=== PATIENT | male | born 1935 | race Caucasian/White ===

== ENCOUNTER 2020-01-26 08:44 | Outpatient (CLI) | payer MEDICARE ==
--- NOTE | 2020-01-26 11:22 | CT ---
CT ABDOMEN AND PELVIS WITH IV CONTRAST 01/26/2020 CLINICAL INFORMATION: Metastatic prostate cancer. Evaluate for progression. Underwent chemotherapy 7 years ago. COMPARISON: None. Technique: Multiple contiguous axial CT images are obtained through the abdomen and pelvis with IV contrast. Cor onal reformatted images are provided. FINDINGS: Lower Chest: Linear scarring versus atelectasis at each lung base. No pulmonary nodule or mass is see n. Coronary artery calcifications are seen. There is evidence of a hiatal hernia with the fundus of the stomach above the level of the hemidiaphragms. Vessels: Vascular calcifications are seen in the abdominal aorta and involving the iliac arteries. Abdomen: Portal vein:Patent Gallbladder: Within normal limits for CT imaging. Liver: within normal limits. Spleen: Single calcified granuloma present. Pancreas: within normal limits. Adrenals: within normal limits. Kidneys: A single subcentimeter too small to characterize hypodense lesion is seen in each kidney. Th ere is no hydronephrosis or enhancing renal mass identified. Bowel: Evidence of colonic diverticulosis with multiple colonic diverticuli involving the sigmoid col on. Loops of small bowel are normal in caliber. Appendix: The appendix is visualized and normal in caliber. Peritoneum: No ascites or free air; no fluid collection. Mesentery and Retroperitoneum: No enlarged mesenteric or retroperitoneal lymph nodes. Abdominal Wall: within normal limits. Pelvis: Reproductive Organs: Calcifications are seen in the prostate gland. Prostate gland is heterogeneous i n appearance and borderline enlarged measuring 5 cm in transverse dimension. Bladder: Decompressed. Smith of the urinary bladder do appear thickened, but this is probably attribu table to incomplete distention. There is a small urinary bladder diverticulum involving the left lateral wall of the urinary bladder. Bones: Innumerable sclerotic osteoblastic metastatic lesions are seen throughout the visualized osseo us structures involving the bilateral ribs, visualized lower thoracic vertebral bodies as well as lumbar vertebral bodies and pelvis. Degenerative changes are seen in the spine. IMPRESSION: 1. Innumerable osteoblastic metastatic lesions throughout the visualized osseous structures. 2. Hiatal hernia 3. Colonic diverticulosis. 4. No enlarged lymph nodes are seen within the abdomen or pelvis. 5. Enlargement of the prostate gland which demonstrates heterogeneous appearance with associated calc ifications. 6. Urinary bladder is incompletely distended. Smith urinary bladder appear mildly thickened, but this is probably attributable to incomplete distention. There is a small urinary bladder diverticulum involving the left lateral wall of the urinary bladder.
--- NOTE | 2020-01-26 13:33 | NM ---
EXAM: NM Bone Scan STANDARD PROVIDED CLINICAL HISTORY: Prostate cancer. History of chemotherapy 7 years ago. Evaluate for progression. COMPARISON: No prior studies are available for comparison. Patient has prior outside CD with imaging, but the doe ges are encrypted and unable to be seen. FINDINGS: Multifocal areas of increased uptake of radiotracer are seen within the thoracic and lumbar spine as well as involving each iliac bone and more subtle areas of increased uptake of radiotracer within several ribs including more focal area of more intense uptake of radiotracer in a lower anterior righ t rib. These findings are in a pattern most suggestive of metastatic disease. Multiple sclerotic osseous metastatic lesions were seen within the visualized lower thoracic and lumbar spine and involv ing the pelvis on recent CT exam also obtained on this date. A few focal areas of increased uptake of radiotracer are seen within each shoulder, and while there are likely degenerative changes, a few of the foci of increased uptake are likely due to metastatic lesions as well. There is S-shaped sclerotic curvature of the thoracolumbar spine. Expected activity is seen within th e kidneys and urinary bladder with urine contamination overlying the lower pelvis. IMPRESSION: Osseous metastatic disease.
[2020-01-26] MEDS ORDERED: Iopamidol-370 76% 500 ML 1 ML ONE (14:52)
== END 2020-01-26 08:45 | disposition home or self-care (01) ==
LOC: CT 08:44
PROVIDERS: ATTEND Internal Medicine Hematology & Oncology
DX: C61 Malignant neoplasm of prostate (principal); C79.51 Secondary malignant neoplasm of bone; K44.9 Diaphragmatic hernia without obstruction or gangrene; K57.30 Diverticulosis of large intestine without perforation or abscess without bleeding; N32.3 Diverticulum of bladder
CPT/HCPCS: 74177; 78306; A9503; Q9967

== ENCOUNTER 2020-02-21 16:14 | Inpatient (IN) | payer MEDICARE ==
--- NOTE | 2020-02-21 17:40 | RAD ---
XR Chest 1 View Portable History: Chest pain Comparison: None. Findings: Extensive scarring in the lung bases. Diffuse osseous metastatic disease. Moderate hiatal h ernia. Tortuous vessels along the right paratracheal stripe. Small nodules right upper lobe. Impression: 1. Diffuse osseous metastatic disease. 2. No evidence for pneumonia. 3. Small nodules right upper lobe may reflect pulmonary metastasis versus granulomas. 3. Moderate hiatal hernia. 4. Scarring throughout the lung bases.
[2020-02-21 17:56] LABS: Hemoglobin 13.6 g/dL (14.0-18.0); Mean Corpuscular HGB CONC 33.4 g/dL (32.0-36.0); Platelet Count 142 thou/uL (130-400); RBC Distribution Width 11.4 % (11.5-14.5); Red Blood Cell (RBC) Count 3.77 mill/uL (4.70-6.10); White Blood Cell (WBC) Count 3.3 thou/uL (4.8-10.8)
[2020-02-21 18:17] LABS: ALT (SGPT) 12 U/L (8-55); AST (SGOT) 19 U/L (5-34); Alkaline Phosphatase 74 U/L (40-110); Anion Gap 16 mmol/L (10-20); BUN (Urea Nitrogen) 27 mg/dL (8.4-25.7); Bilirubin, Total 1.2 mg/dL (0.2-1.2); CK (CPK) 60 U/L (30-200); Calc. Creatinine Clearance 0 mL/min (70-130); Calcium 8.9 mg/dL (7.8-10.44); Carbon Dioxide 22 mmol/L (23-31); Chloride 107 mmol/L (98-107); Globulin 2.4 g/dL (2.4-3.5); Glucose 110 mg/dL (83-110); Potassium 4.5 mmol/L (3.5-5.1); Protein, Total 6.4 g/dL (5.8-8.1); Sodium 140 mmol/L (136-145)
--- NOTE | 2020-02-21 18:20 | CT ---
CT Brain WO Con History: Dizziness Comparison: None. 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 No acute hemorrhage or infarct. No midline shift or mass effect. Calvarium is intact. Paranasal sinuses and mastoids are clear. Impression: No acute intracranial abnormality.
[2020-02-21 18:21] LABS: Band 23 % (5-11); Lymphocytes 14 % (21-51); MDiff Complete? YES; Macrocytosis SLIGHT = 6-15 cells (100X) (0-5/hpf); Monocytes 2 % (0-10); Neutrophil 48 % (42-75); Platelet Morphology Comment Appears Adequate; Reactive Lymphocytes 13 % (0-10)
--- NOTE | 2020-02-21 22:40 | PDOC.HHP ---
Hospitalist HPI - History of Present Illness Balance issues History of Present Illness: PCP: Dr. Swartz The patient is an 84-year-old male with a past medical history significant for hypertension and metastatic prostate cancer followed by Dr. Swanson that presents to the emergency department for the above complaint. Patient reports that he became off balance this evening while in his kitchen. He reports while standing at the kitchen countertop, feeling off balance and "sliding into the countertop". He denies feeling like he was going to pass out or that the room was spinning. Also, at the dentist this morning, the patient reports difficulty reaching for a bag with his right hand, so he had to grab with his left hand. He said his hand would not do what his mind was telling it to do. Patient reports that he had a chemotherapy session this past on 02/16/2020. He denies any headache, recent fall or trauma, recent surgery, recent fever or illness. He has no history of DVT/PE. He denies vision changes, speech changes. Denies biting tongue or incontinence or bowel/bladder. Denies chest pain, heart palpitations, swelling to lower extremities. Denies any shortness of breath, wheezing or cough. Denies any abdominal pain, vomiting, hematochezia/melena. Denies any dysuria or hematuria. ED Course: VITAL SIGNS ThuFeb 21, 2020 16:15 MOE Bledsoe Elizabeth BP: 133/79, Pulse: 104, Resp: 17 (Non-Labored), Temp: 98.6 (Oral), Pain: 0, O2 sat: 99 on (Room Air), Time: 02/21/2020 16:15. VITAL SIGNS ThuFeb 21, 2020 17:25 MOE Martel Jennifer BP: 136/87, Pulse: 98, Resp: 16, Temp: 98.6 (Oral), Pain: 0, O2 sat: 98 on (Room Air), Time: 02/21/2020 17:25. VITAL SIGNS ThuFeb 21, 2020 18:35 MOE Martel Jennifer BP: 137/82, Pulse: 89, Resp: 19, Pain: 0, O2 sat: 97 on (Room Air), Time: 02/21/2020 18:35. VITAL SIGNS ThuFeb 21, 2020 19:30 MOE Guerin Madison BP: 138/87, Pulse: 90, Resp: 17, Pain: 0, O2 sat: 97 on (Room Air), Time: 02/21/2020 19:30. VITAL SIGNS ThuFeb 21, 2020 20:13 MOE Guerin Madison BP: 134/89, Pulse: 92, Resp: 20, Pain: 0, O2 sat: 98 on (Room Air), Time: 02/21/2020 20:13. Medications: 243 mg ASA 1 g calcium carbonate Pepcid 20 mg Hospitalist ROS - Review of Systems All other systems reviewed; all pertinent +/- noted in HPI/Subj - Medication Medications: lisinopril ThuFeb 21, 2020 16:23 Mariscal RN, Daniel tablet : Strength - 10 mg : ORAL Patient Dose: Unknown.UNKNOWN DOSE. amLODIPine ThuFeb 21, 2020 16:24 Mariscal RN, Daniel tablet : Strength - 10 mg : ORAL Patient Dose: Unknown.UNKNOWN DOSE. Allergies: NKDA Hospitalist History - Past Medical History Source: patient, RN notes reviewed Cardiac: reports: HTN Heme/Onc: reports: Cancer (Metastatic prostate cancer) - Past Surgical History Past Surgical History: reports: no pertinent history - Family History Family History: denies: cerebrovascular accident - Social History Smoking Status: Never smoker Alcohol: reports: Rare Drugs: reports: none Living Situation: With Family Activity level: uses cane/walker - Exam General Appearance: NAD, awake alert. negative: ill appearing Eye: PERRL, anicteric sclera ENT: normocephalic atraumatic Neck: supple, symmetric Heart: RRR, no gallops, no rubs, normal peripheral pulses, III/IV Respiratory: CTAB, no wheezes, no rales, no ronchi, normal chest expansion Gastrointestinal: soft, non-tender, non-distended, normal bowel sounds, no bruit, no guarding Extremities: no cyanosis, no edema Neurological: cranial nerve grossly intact, no focal deficits Neurological - other findings: GCS 15, NIH 0, normal modified hints exam Musculoskeletal: normal tone, normal strength Psychiatric: normal affect, A&O x 3 Hospitalist Results - Labs Result Diagrams: 02/22/20 02:18 02/22/20 02:18 Lab results: WBC 3.3 thou/uL (4.8-10.8) L 02/21/20 17:41 Hgb 13.6 g/dL (14.0-18.0) L 02/21/20 17:41 Hct 40.6 % (42.0-52.0) L 02/21/20 17:41 MCV 108.0 fL (78.0-98.0) H 02/21/20 17:41 Plt Count 142 thou/uL (130-400) 02/21/20 17:41 Band Neuts % (Manual) 23 % (5-11) H 02/21/20 17:41 Sodium 140 mmol/L (136-145) 02/21/20 17:41 Potassium 4.5 mmol/L (3.5-5.1) 02/21/20 17:41 Chloride 107 mmol/L (98-107) 02/21/20 17:41 Carbon Dioxide 22 mmol/L (23-31) L 02/21/20 17:41 BUN 27 mg/dL (8.4-25.7) H 02/21/20 17:41 Creatinine 0.83 mg/dL (0.7-1.3) 02/21/20 17:41 Glucose 110 mg/dL (83-110) 02/21/20 17:41 Lactic Acid 1.4 mmol/L (0.5-2.2) 02/21/20 17:41 Calcium 8.9 mg/dL (7.8-10.44) 02/21/20 17:41 Total Bilirubin 1.2 mg/dL (0.2-1.2) 02/21/20 17:41 AST 19 U/L (5-34) 02/21/20 17:41 ALT 12 U/L (8-55) 02/21/20 17:41 Alkaline Phosphatase 74 U/L (40-110) 02/21/20 17:41 Creatine Kinase 60 U/L (30-200) 02/21/20 17:41 Troponin I Less than 0.010 ng/mL (< 0.028) 02/21/20 17:41 Serum Total Protein 6.4 g/dL (5.8-8.1) 02/21/20 17:41 Albumin 4.0 g/dL (3.4-4.8) 02/21/20 17:41 - EKG Interpretation EKG: Sinus tachycardia, no ST elevations, left axis deviation. - Radiology Interpretation CT scan - head Status: report reviewed by me Additional Comment: Impression: No acute intracranial abnormality. Chest x-ray Status: report reviewed by me Additional Comment: Impression: 1. Diffuse osseous metastatic disease. 2. No evidence for pneumonia. 3. Small nodules right upper lobe may reflect pulmonary metastasis versus granulomas. 3. Moderate hiatal hernia. 4. Scarring throughout the lung bases. Hospitalist H&P A/P - Problem (1) TIA (transient ischemic attack) Code(s): G45.9 - TRANSIENT CEREBRAL ISCHEMIC ATTACK, UNSPECIFIED Status: Acute (2) Hypertension Code(s): I10 - ESSENTIAL (PRIMARY) HYPERTENSION Status: Chronic (3) Prostate cancer metastatic to bone Code(s): C61 - MALIGNANT NEOPLASM OF PROSTATE; C79.51 - SECONDARY MALIGNANT NEOPLASM OF BONE Status: Chronic - Plan Plan: 84/M with PMH HTN and prostate cancer presents for possible TIA. Admit to stroke unit, observation status. Expected length of stay less than 2 midnights. Presented tachycardic, NL BP, RR, SPO2, afebrile. EKG sinus tachycardia, no ST elevations. CXR osseous metastatic disease, no pneumonia. CT brain no acute process. Troponin 0.010, CK 60 BUN 27, creatinine 23 UA unremarkable LA 1.4, WBC 3.3 #TIA Suspected. Get MRI, CD US, echocardiogram. Check TSH, FLP, B12/folate, mag level. Continue aspirin, start statin. Consult neurology and PT/OT. Permissive hypertension. Neurochecks. Orthostatic vital signs. #Hypertension Presented hypertensive. Takes lisinopril and amlodipine at home. We will restart home medication when reconciled by nursing. #Prostate cancer metastatic to bone Last chemotherapy on 02/16/[address] Swanson. SCDs for DVT prophylaxis. Lovenox for DVT prophylaxis. Pepcid for GI prophylaxis. Full code. Discussed case with Dr. Yuliet Andrews.
[2020-02-21] MEDS ORDERED: Famotidine/PF 20 mg/2ml Vial ONE (23:10)
[2020-02-21] MEDS ORDERED: Aspirin Chewable 81 MG TAB ONE (23:10)
[2020-02-21 23:12] LABS: Bacteria/HPF None Seen HPF (None Seen); Bilirubin Negative (Negative); Blood, Urine Negative (Negative); Clarity Clear (Clear); Glucose, Urine (Dipstick) Normal (Negative); Ketone, Urine 10 mg/dL (Negative); Leukocyte Negative Leu/uL (Negative); Nitrite Negative (Negative); Protein, Urine (Dipstick) 30 mg/dL (Neg-Trace); RBC/HPF None Seen HPF (0-3); Squamous Epithelial 0-3 HPF (0-3); Urobilinogen Normal mg/dL (Less than 2); pH, Urine 5.5 (5.0-9.0)
[2020-02-21] MEDS ORDERED: Labetalol HCl 100 MG/20 ML VIAL SLOW IVP PRN (23:19)
[2020-02-21] MEDS ORDERED: hydrALAZINE 20 MG/ML VIAL SLOW IVP PRN (23:19)
[2020-02-21] MEDS ORDERED: Ondansetron PF 4 MG/2 ML Vial IVP PRN (23:24)
[2020-02-21] MEDS ORDERED: Ondansetron ODT 4 MG TAB PO PRN (23:24)
[2020-02-21] MEDS ORDERED: Calcium Carbonate 500 MG ChewTAB PO PRN (23:24)
[2020-02-21] MEDS ORDERED: Acetaminophen 325 MG TAB PO PRN (23:24)
[2020-02-21 23:56] LABS: Troponin I Less than 0.010 ng/mL (< 0.028)
[2020-02-22 00:16] LABS: Thyroid Stimulating Hormone 2.4543 uIU/mL (0.35-4.94)
[2020-02-22 01:30] VITALS: BMI 26.6
[2020-02-22 02:25] LABS: #Lymphocytes 0.9 thou/uL (1.20-3.40); #Monocytes 0.1 thou/uL (0.11-0.59); #Neutrophils 2.5 thou/uL (1.40-6.50); %Basophils 0.8 % (0.0-1.0); %Eosinophils 0.4 % (0.0-10.0); %Lymphocytes 25.7 % (21.0-51.0); %Monocytes 1.4 % (0.0-10.0); %Neutrophils 71.8 % (42.0-75.0); Hemoglobin 12.5 g/dL (14.0-18.0); Mean Corpuscular HGB CONC 34.1 g/dL (32.0-36.0); Mean Corpuscular Hemoglobin 36.6 pg (27.0-31.0); Mean Platelet Volume 8.4 fL (7.4-10.4); Platelet Count 121 thou/uL (130-400); RBC Distribution Width 11.4 % (11.5-14.5); Red Blood Cell (RBC) Count 3.42 mill/uL (4.70-6.10); White Blood Cell (WBC) Count 3.5 thou/uL (4.8-10.8)
[2020-02-22 02:48] LABS: Troponin I 0.021 ng/mL (< 0.028)
[2020-02-22 02:54] LABS: Anion Gap 15 mmol/L (10-20); BUN (Urea Nitrogen) 27 mg/dL (8.4-25.7); Calc. Creatinine Clearance 92 mL/min (70-130); Calcium 8.8 mg/dL (7.8-10.44); Carbon Dioxide 23 mmol/L (23-31); Chloride 105 mmol/L (98-107); Cholesterol 131 mg/dl (< 200 Desired); Glucose 126 mg/dL (83-110); Potassium 3.8 mmol/L (3.5-5.1); Sodium 139 mmol/L (136-145); Triglycerides 82 mg/dL (Less than 150)
[2020-02-22 02:55] LABS: Cardiac Risk 1.9 (Less than 4.5); HDL Cholesterol 68 mg/dL (>60 Neg Risk); LDL Cholesterol, Calculated 47 mg/dL
--- NOTE | 2020-02-22 08:20 | ULT ---
Carotid arterial Doppler ultrasound: 02/22/2020 COMPARISON: None HISTORY: Clinical concern for a posterior stroke TECHNIQUE: Multiplanar grayscale sonographic imaging of the arterial structures of the neck obtained with Doppler interrogation including color flow and spectral analysis FINDINGS: Antegrade blood flow and normal arterial waveforms are documented within the carotid and th e vertebral system bilaterally. Peak systolic velocity (centimeters per second) is 85 within the right CCA, 53 within the right ECA, 69 within the right ICA, 103 within the left CCA, 68 within the left ECA, and 51 within the left ICA. The ICA/CCA ratio is 0.8 on the right and 0.5 on the left. IMPRESSION: No hemodynamically significant stenosis on the basis of sonographic velocity criteria. Re view of recent head CT demonstrates a questionable intra-axial lesion posteriorly on the left for which brain MRI is advised. Results were discussed with at 8:15 AM 02/22/2020
[2020-02-22] MEDS: Enoxaparin Sodium 40 MG/0.4 ML SYRINGE SC SCH (09:00)
[2020-02-22] MEDS: Aspirin 325 mg Enteric Coated Tablet PO SCH (09:00)
[2020-02-22] MEDS ORDERED: FLU VACC QS2020-21(65YR UP)/PF 240 MCG/0.7 ML SYRINGE IM ONE (09:00)
[2020-02-22] MEDS: Famotidine 20 MG TAB PO SCH ×2 (09:00→20:34)
--- NOTE | 2020-02-22 09:02 | MRI ---
MRI of thebrain with and without contrast: 02/22/2020 COMPARISON:None available HISTORY:Possible posterior stroke, questionable brain lesion versus prior infarction on the left, his tory of prostate malignancy TECHNIQUE: Multiplanar multisequence MR imaging of thebrain with and without contrast Findings:The diffusion weighted imaging demonstrates multiple clustered foci of restricted diffusion within the posterior left parietal/temporal region consistent with acute infarction. Numerous punctate foci of restricted diffusion are seen in this region abutting the posterior body of the left lateral ventricle and extending into the adjacent deep and subcortical white matter involving an area measuring up to 2.7 cm in transverse dimension. The imaged paranasal sinuses and mastoid air cells demonstrate no acute findings. Regional bone marro w signal intensity appears grossly unremarkable. The axial gradient echo imaging demonstrates no evidence for acute hemorrhage. There is minimal curvi linear blooming artifact in an area of posterior left temporal occipital encephalomalacia suggesting remote infarction with associated minimal blood products. This area of prior insult corres ponds to the area of abnormality on recent CT exam. No underlying brain lesion is seen in this region. The postcontrast imaging demonstrates no abnormal enhancement within the brain parenchyma. IMPRESSION:Foci of restricted diffusion consistent with acute infarction on the left as detailed abov e. Inferior and posterior to this is an area of prior infarction corresponding to the abnormality on recent head CT. No evidence for acute hemorrhage. No enhancing intra-axial abnormality.
[2020-02-22 09:19] LABS: SARS-CoV-2 MS2 Positive; SARS-CoV-2 N Gene Negative; SARS-CoV-2 S Gene Negative; SARS-CoV-2 by NAA Not Detected (NotDetected); SARS-CoV-2 orf1ab Negative
[2020-02-22] MEDS ORDERED: Magnevist 469MG/ML 20 ML VIAL ONE (13:11)
--- NOTE | 2020-02-22 13:34 | PDOC.HOSPP ---
- Subjective Encounter Date: 02/22/20 Encounter Time: 10:00 Subjective: Patient was seen and examined in bed. He denies any ongoing weakness, slurred speech or tremors. Denies any chest pain or shortness of breath. - Objective Vital Signs & Weight: Vital Signs (12 hours) Temp Pulse Pulse Pulse Resp BP BP 02/22/20 11:41 97.7 F 83 16 02/22/20 11:04 80 81 144/72 H 131/74 02/22/20 09:09 72 74 148/66 H 149/73 H 02/22/20 08:57 97.7 F 70 16 02/22/20 04:00 97.9 F 81 20 BP Pulse Ox 02/22/20 11:41 115/74 97 02/22/20 11:04 02/22/20 09:09 02/22/20 08:57 148/66 H 97 02/22/20 04:00 137/62 98 Weight Weight 201 lb 15.095 oz I&O: 02/21/20 02/22/20 02/23/20 06:59 06:59 06:59 Intake Total 300 600 Balance 300 600 Result Diagrams: 02/22/20 02:18 02/22/20 02:18 Hospitalist ROS - Medication Medications: Active Medications Generic Name Dose Route Start Last Admin Trade Name Abhay PRN Reason Stop Dose Admin Aspirin 325 mg 02/22/20 09:00 02/22/20 09:00 Aspirin 325 Mg Enteric Coated Tablet PO 325 mg DAILY EDIS Administration Enoxaparin Sodium 40 mg 02/22/20 09:00 02/22/20 09:00 Enoxaparin Sodium 40 Mg/0.4 Ml Syringe SC 40 mg 899 EDIS Administration Famotidine 20 mg 02/22/20 09:00 02/22/20 09:00 Famotidine 20 Mg Tab PO 20 mg BID EDIS Administration - Exam General Appearance: awake alert Neck: supple, symmetric, no JVD, no thyromegaly Heart: RRR, no murmur, no gallops, no rubs Respiratory: CTAB, no wheezes, no rales, no ronchi Gastrointestinal: soft, non-tender, non-distended, normal bowel sounds Extremities: no cyanosis, no clubbing, no edema Neurological: cranial nerve grossly intact, no focal deficits Psychiatric: normal affect, normal behavior, A&O x 3 Hosp A/P - Plan This is an 84-year-old male patient with a history of metastatic prostate cancer currently undergoing chemotherapy who presented overnight on account of unsteadiness with swaying towards his right side. Also complains of difficulty grabbing onto things prior to arrival however most of the symptoms have resolved at the time of my evaluation. He is CT scan was concerning for a left temporal occipital lesion confirmed by MRI. Assessment as per neurology suggested this could be cardioembolic Cardioembolic stroke. He has no history of atrial fibrillation Transthoracic echocardiogram concerning for moderate to severe aortic stenosis however no Thrombus noted We will consult cardiology for EZEQUIEL for further evaluation. Continue aspirin and statin PT Fall precautions Permissive hypertension Metastatic prostate cancer Currently stable We will keep monitoring. Aortic stenosis Aortic sclerosis/stenosis Cardiology consulted [place] prophylaxisLovenox CODE STATUSfull code
--- NOTE | 2020-02-22 18:48 | CON ---
NEUROLOGY CONSULTATION DATE OF CONSULTATION: 02/22/2020 REASON FOR CONSULTATION: Stroke-like symptoms. HISTORY OF PRESENT ILLNESS: Mr. De Leon is an 84-year-old male with medical history significant for hypertension and metastatic lung cancer, followed by Dr. Swanson, presented to the emergency room with stroke-like symptoms and balance issues. Per patient, he felt off balance since evening while he was in his kitchen yesterday. He was unable to eat properly, and thought he has problem reaching things from his right hand . His chemotherapy session past on 02/16/2020, but denies any recent illness, recent fall, surgery, fever, recent exposure to COVID, chest pain, abdominal pain, focal numbness, focal paresthesias, nausea, vomiting, headache. In the emergency room, his blood pressure was 133/79, pulse 104, respiratory rate 17. He was given aspirin, calcium carbonate, and Pepcid. REVIEW OF SYSTEMS: All systems reviewed and were negative except the pertinent positives and negatives mentioned in the HPI. HOME MEDICATIONS: 1. Aspirin 81 mg daily. 2. Amlodipine 10 mg daily. 3. Lisinopril 10 mg daily. PAST MEDICAL HISTORY: Hypertension, metastatic lung cancer. PAST SURGICAL HISTORY: No pertinent past surgical history. FAMILY HISTORY: No family history with cerebrovascular accident. SOCIAL HISTORY: The patient lives with family. Denies smoking, alcohol, illegal drug use. ALLERGIES: NKDA Vital Signs & Weight: Vital Signs (12 hours) Temp Pulse Pulse Pulse Resp BP BP 02/22/20 11:41 97.7 F 83 16 02/22/20 11:04 80 81 144/72 H 131/74 02/22/20 09:09 72 74 148/66 H 149/73 H 02/22/20 08:57 97.7 F 70 16 02/22/20 04:00 97.9 F 81 20 BP Pulse Ox 02/22/20 11:41 115/74 97 02/22/20 11:04 02/22/20 09:09 02/22/20 08:57 148/66 H 97 02/22/20 04:00 137/62 98 Weight Weight 201 lb 15.095 oz I&O: 02/21/20 02/22/20 02/23/20 06:59 06:59 06:59 Intake Total 300 600 Balance 300 600 Active Medications Generic Name Dose Route Start Last Admin Trade Name Freq PRN Reason Stop Dose Admin Aspirin 325 mg 02/22/20 09:00 02/22/20 09:00 Aspirin 325 Mg Enteric Coated Tablet PO 325 mg DAILY EDIS Administration Enoxaparin Sodium 40 mg 02/22/20 09:00 02/22/20 09:00 Enoxaparin Sodium 40 Mg/0.4 Ml Syringe SC 40 mg 0900 EDIS Administration Famotidine 20 mg 02/22/20 09:00 02/22/20 09:00 Famotidine 20 Mg Tab PO 20 mg BID EDIS Administration PHYSICAL EXAMINATION: General Appearance: NAD, awake alert. negative: ill appearing Eye: PERRL, anicteric sclera ENT: normocephalic atraumatic Neck: supple, symmetric Heart: RRR, no gallops, no rubs, normal peripheral pulses, III/IV Respiratory: CTAB, no wheezes, no rales, no ronchi, normal chest expansion Gastrointestinal: soft, non-tender, non-distended, normal bowel sounds, no bruit, no guarding Extremities: no cyanosis, no edema Neurological:Mental status; the patient is alert and oriented to person, place, and time. Recent and remote memory, intact. Speech is clear. Cranial nerves 2 through 12 intact. Motor; muscle tone and bulk are normal. Moving all 4 extremities equally and symmetrically. Sensory intact. Cerebellar, dysmetria on finger- nose testing on the right. Gait deferred due to the patient's safety reason. DIAGNOSTIC STUDIES: Data reviewed. I reviewed the labs which are significant for hemoglobin of 12.5, hematocrit of 36.8, and platelets 121. WBC 3.3 thou/uL (4.8-10.8) L 02/21/20 17:41 Hgb 13.6 g/dL (14.0-18.0) L 02/21/20 17:41 Hct 40.6 % (42.0-52.0) L 02/21/20 17:41 MCV 108.0 fL (78.0-98.0) H 02/21/20 17:41 Plt Count 142 thou/uL (130-400) 02/21/20 17:41 Band Neuts % (Manual) 23 % (5-11) H 02/21/20 17:41 Sodium 140 mmol/L (136-145) 02/21/20 17:41 Potassium 4.5 mmol/L (3.5-5.1) 02/21/20 17:41 Chloride 107 mmol/L (98-107) 02/21/20 17:41 Carbon Dioxide 22 mmol/L (23-31) L 02/21/20 17:41 BUN 27 mg/dL (8.4-25.7) H 02/21/20 17:41 Creatinine 0.83 mg/dL (0.7-1.3) 02/21/20 17:41 Glucose 110 mg/dL (83-110) 02/21/20 17:41 Lactic Acid 1.4 mmol/L (0.5-2.2) 02/21/20 17:41 Calcium 8.9 mg/dL (7.8-10.44) 02/21/20 17:41 Total Bilirubin 1.2 mg/dL (0.2-1.2) 02/21/20 17:41 AST 19 U/L (5-34) 02/21/20 17:41 ALT 12 U/L (8-55) 02/21/20 17:41 Alkaline Phosphatase 74 U/L (40-110) 02/21/20 17:41 Creatine Kinase 60 U/L (30-200) 02/21/20 17:41 Troponin I Less than 0.010 ng/mL (< 0.028) 02/21/20 17:41 Serum Total Protein 6.4 g/dL (5.8-8.1) 02/21/20 17:41 Albumin 4.0 g/dL (3.4-4.8) 02/21/20 17:41 - EKG Interpretation EKG: Sinus tachycardia, no ST elevations, left axis deviation. - Radiology Interpretation CT scan - head Status: report reviewed by me Additional Comment: Impression: No acute intracranial abnormality. Chest x-ray Status: report reviewed by me Additional Comment: Impression: 1. Diffuse osseous metastatic disease. 2. No evidence for pneumonia. 3. Small nodules right upper lobe may reflect pulmonary metastasis versus granulomas. 3. Moderate hiatal hernia. 4. Scarring throughout the lung bases. ASSESSMENT AND PLAN: (1) TIA (transient ischemic attack) Code(s): G45.9 - TRANSIENT CEREBRAL ISCHEMIC ATTACK, UNSPECIFIED Status: Acute (2) Hypertension Code(s): I10 - ESSENTIAL (PRIMARY) HYPERTENSION Status: Chronic (3) Prostate cancer metastatic to bone Code(s): C61 - MALIGNANT NEOPLASM OF PROSTATE; C79.51 - SECONDARY MALIGNANT NEOPLASM OF BONE Status: Chronic Mr. Alley De Leon is an 84-year-old male, who was consulted for stroke-like symptoms including right hand dysmetria and balance issues, most likely transient ischemic attack. Consider MRI of the brain to rule out acute intracranial process. 2D echo to evaluate for left ventricular ejection fraction. Telemetry to rule out arrhythmias. Carotid Dopplers to rule out hemodynamically-significant stenosis. PT/OT/speech. The patient was on aspirin 81 mg daily so increase it to full dose and continue home medications. Continue statin for secondary stroke prevention. Monitor BP and BG. Continue medical management per primary team. Neuro checks every 4 hours. DVT prophylaxis. We will continue to follow. Thank you for the consult. Job ID: [id number]
[2020-02-22] MEDS ORDERED: Atorvastatin Calcium 40 MG TAB PO SCH (21:00)
[2020-02-23 05:17] LABS: Hemoglobin A1c 5.1 % (4.0-6.0)
[2020-02-23] MEDS ORDERED: Furosemide 20 MG TAB PO PRN (08:24)
[2020-02-23] MEDS ORDERED: Amlodipine 5 MG TAB PO SCH (09:00)
[2020-02-23] MEDS ORDERED: Non-Formulary Item 1 EACH (Enzalutamide [Xtandi] 40 MG Capsule) PO SCH (09:00)
[2020-02-23] MEDS ORDERED: Ondansetron ODT 8 MG TAB PO SCH (09:00)
[2020-02-23] MEDS ORDERED: Non-Formulary Item 1 EACH (Potassium Chloride [Potassium Chloride] 10 MEQ Capsule.Er) PO SCH (09:00)
[2020-02-23] MEDS ORDERED: Potassium Chloride 10 MEQ TAB PO SCH (09:00)
[2020-02-23] MEDS ORDERED: Lisinopril 20 MG TAB PO SCH (09:00)
[2020-02-23] MEDS ORDERED: Enzalutamide [Xtandi] 40 MG PO SCH (09:00)
[2020-02-23] MEDS ORDERED: PROCHLORPERAZINE MALEATE 10 MG PO SCH (09:00)
[2020-02-23] MEDS ORDERED: Prochlorperazine Maleate 5 MG TAB PO SCH (09:00)
[2020-02-23] MEDS: Enoxaparin Sodium 40 MG/0.4 ML SYRINGE SC SCH (09:18)
[2020-02-23] MEDS: Famotidine 20 MG TAB PO SCH (09:18)
[2020-02-23] MEDS: Aspirin 325 mg Enteric Coated Tablet PO SCH (09:18)
[2020-02-23 11:16] VITALS: TEMP 97.3
[2020-02-23 13:36] VITALS: BP 148/86
--- NOTE | 2020-02-23 14:14 | PDOC.NEUPN ---
- Subjective Encounter Date: 02/23/20 Subjective: Mr. De Leon denies any new complaints in the last 24 hours. - Objective Vital Signs & Weight: Vital Signs (12 hours) Temp Pulse Pulse Pulse Resp BP BP 02/23/20 11:14 97.3 F L 92 20 02/23/20 09:18 72 02/23/20 09:09 76 79 148/86 H 141/81 H 02/23/20 08:44 76 72 148/86 H 143/76 H 02/23/20 07:32 97.9 F 72 16 02/23/20 03:34 98.5 F 73 16 BP BP Pulse Ox 02/23/20 11:14 116/67 97 02/23/20 09:18 02/23/20 09:09 02/23/20 08:44 02/23/20 07:32 143/75 H 98 02/23/20 03:34 140/76 97 Weight Weight 201 lb 15.095 oz I&O: 02/22/20 02/23/20 02/24/20 06:59 06:59 06:59 Intake Total 300 900 600 Balance 300 900 600 Result Diagrams: 02/22/20 02:18 02/22/20 02:18 Radiology Reviewed by me: Yes EKG Reviewed by me: Yes ROS - Review of Systems Constitutional: denies: fever, chills, sweats, weakness, malaise, other Eyes: denies: pain, vision change, conjunctivae inflammation, eyelid inflammation, redness, other ENT: denies: ear pain, ear discharge, nose pain, nose discharge, nose congestion, mouth pain, mouth swelling, throat pain, throat swelling, other Gastrointestinal: denies: nausea, vomiting, abdominal pain, diarrhea, constipation, melena, hematochezia, other Genitourinary: denies: dysuria, frequency, incontinence, hematuria, retention, other Musculoskeletal: denies: neck pain, shoulder pain, arm pain, back pain, hand pain, leg pain, foot pain, other Skin: denies: rash, lesions, fabi, bruising, other Neurological: denies: weakness, numbness, incoordination, change in speech, confusion, seizures, other - Medication Medications: Active Medications Generic Name Dose Route Start Last Admin Trade Name Freq PRN Reason Stop Dose Admin Amlodipine Besylate 5 mg 02/23/20 09:00 12/10/20 09:18 Amlodipine 5 Mg Tab PO 5 mg DAILY EDIS Administration Aspirin 325 mg 02/22/20 09:00 02/23/20 09:18 Aspirin 325 Mg Enteric Coated Tablet PO 325 mg DAILY EDIS Administration Atorvastatin Calcium 40 mg 02/22/20 21:00 02/22/20 20:35 Atorvastatin Calcium 40 Mg Tab PO 40 mg HS EDIS Administration Enoxaparin Sodium 40 mg 02/22/20 09:00 02/23/20 09:18 Enoxaparin Sodium 40 Mg/0.4 Ml Syringe SC 40 mg 0900 EDIS Administration Famotidine 20 mg 02/22/20 09:00 02/23/20 09:18 Famotidine 20 Mg Tab PO 20 mg BID EDIS Administration Lisinopril 20 mg 02/23/20 09:00 02/23/20 09:18 Lisinopril 20 Mg Tab PO 20 mg DAILY EDIS Administration Ondansetron HCl 8 mg 02/23/20 09:00 02/23/20 09:18 Ondansetron Odt 8 Mg Tab PO Not Given DAILY [facility] Potassium Chloride 10 meq 02/23/20 09:00 02/23/20 09:18 Potassium Chloride 10 Meq Tab PO 10 meq DAILY [facility] Administration Prochlorperazine Maleate 10 mg 02/23/20 09:00 02/23/20 09:17 Prochlorperazine Maleate 5 Mg Tab PO Not Given DAILY [facility] - Exam General Appearance: awake alert Eye: PERRL ENT: normocephalic atraumatic Neck: supple Respiratory: CTAB Cardiovascular: RRR Gastrointestinal: soft Extremities: no cyanosis Skin: normal turgor Neurological: no new deficit Musculoskeletal: normal tone, no muscle wasting PSYCH: normal affect, normal behavior, A&O x 3 Results - Labs Result Diagrams: 02/22/20 02:18 02/22/20 02:18 Lab results: WBC 3.5 thou/uL (4.8-10.8) L 02/22/20 02:18 Hgb 12.5 g/dL (14.0-18.0) L 02/22/20 02:18 Hct 36.8 % (42.0-52.0) L 02/22/20 02:18 MCV 107.0 fL (78.0-98.0) H 02/22/20 02:18 Plt Count 121 thou/uL (130-400) L 02/22/20 02:18 Neutrophils % 71.8 % (42.0-75.0) 02/22/20 02:18 Band Neuts % (Manual) 23 % (5-11) H 02/21/20 17:41 Sodium 139 mmol/L (136-145) 02/22/20 02:18 Potassium 3.8 mmol/L (3.5-5.1) 02/22/20 02:18 Chloride 105 mmol/L (98-107) 02/22/20 02:18 Carbon Dioxide 23 mmol/L (23-31) 02/22/20 02:18 BUN 27 mg/dL (8.4-25.7) H 02/22/20 02:18 Creatinine 0.76 mg/dL (0.7-1.3) 02/22/20 02:18 Glucose 126 mg/dL (83-110) H 02/22/20 02:18 Lactic Acid 1.4 mmol/L (0.5-2.2) 02/21/20 17:41 Calcium 8.8 mg/dL (7.8-10.44) 02/22/20 02:18 Total Bilirubin 1.2 mg/dL (0.2-1.2) 02/21/20 17:41 AST 19 U/L (5-34) 02/21/20 17:41 ALT 12 U/L (8-55) 02/21/20 17:41 Alkaline Phosphatase 74 U/L (40-110) 02/21/20 17:41 Creatine Kinase 60 U/L (30-200) 02/21/20 17:41 Troponin I 0.021 ng/mL (< 0.028) 02/22/20 02:18 Serum Total Protein 6.4 g/dL (5.8-8.1) 02/21/20 17:41 Albumin 4.0 g/dL (3.4-4.8) 02/21/20 17:41 Urine Ketones 10 mg/dL (Negative) A 02/21/20 22:53 Urine Blood Negative (Negative) 02/21/20 22:53 Urine Nitrite Negative (Negative) 02/21/20 22:53 Ur Leukocyte Esterase Negative Brandan/uL (Negative) 12/08/20 22:53 Urine RBC None Seen HPF (0-3) 02/21/20 22:53 Urine WBC 4-6 HPF (0-3) A 02/21/20 22:53 Ur Squamous Epith Cells 0-3 HPF (0-3) 02/21/20 22:53 Urine Bacteria None Seen HPF (None Seen) 02/21/20 22:53 - EKG Interpretation EKG: Normal sinus rhythm - Radiology Interpretation MRI - head Additional Comment: MRI of the brain was negative for acute intracranial pathology PN A/P (1) Acute CVA (cerebrovascular accident) Code(s): I63.9 - CEREBRAL INFARCTION, UNSPECIFIED Status: Acute (2) Hypertension Code(s): I10 - ESSENTIAL (PRIMARY) HYPERTENSION Status: Chronic (3) Prostate cancer metastatic to bone Code(s): C61 - MALIGNANT NEOPLASM OF PROSTATE; C79.51 - SECONDARY MALIGNANT NEOPLASM OF BONE Status: Chronic - Plan Daily Plan: PT/OT, DVT proph w/SCDs Mr. Montes is a 84-year-old male with history significant for hypertension and prostate carcinoma with metastasis presented with strokelike symptoms . MRI of the brain was consistent with acute infarction MRI of the brain reviewed which showed multiple tiny lacunar infarcts on the left raising suspicion of cardioembolic phenomena. Carotid Dopplers did not reveal hemodynamically significant stenosis. Left ventricular ejection fraction on 2D echocardiogram was is 55 to 60% and no thrombus or PFO. Cardiology on board. Did not recommend EZEQUIEL but recommended Linq monitor to rule out arrhythmias. Patient was on aspirin 81 mg daily still increased to full dose aspirin. Continue high intensity statin for secondary stroke prevention. Neurochecks every 4 hours. Continue telemetry Continue home medications. Monitor blood pressure and blood glucose. Continue medical management per primary team. PT/OT/speech. DVT prophylaxis. Plan discussed in detail with the patient and also the nursing staff.
--- NOTE | 2020-02-24 07:30 | CON ---
DATE OF CONSULTATION: 02/23/2020 REASON FOR CONSULTATION: Stroke, aortic stenosis. HISTORY OF PRESENT ILLNESS: Mr. De Leon is a very pleasant 84-year-old gentleman. He has a history of metastatic prostate cancer. He has been treated with Xtandi and hormonal therapy, but now is undergoing chemotherapy. The patient had an episode of problem with his balance and thought to have probably a posterior circulation stroke potentially cardioembolic, but it is unclear. No cardiac history. The patient otherwise has been active. Considering his other medical problems, he has been doing relatively well. MEDICATIONS: As outlined above. No cardiac medicines. Other than amlodipine, furosemide and lisinopril, and now aspirin. REVIEW OF SYSTEMS: CONSTITUTIONAL: No significant weight gain or loss. He is tolerating chemotherapy well. VISION: No changes. HEARING: No changes. PULMONARY: No cough or wheezing. GASTROINTESTINAL: No nausea, vomiting, or diarrhea. SKIN: No rashes. NEUROLOGIC: No unilateral weakness or numbness, just has balance problems. PHYSICAL EXAMINATION: GENERAL: This is a delightful 84-year-old gentleman, in no distress. VITAL SIGNS: Blood pressure 143/75, pulse 72. LUNGS: Clear. CARDIAC: Normal S1, normal S2. Very soft systolic murmur in right upper sternal border. No diastolic murmur. No S3. ABDOMEN: Soft, nontender. EXTREMITIES: No clubbing or cyanosis. There is no edema. Good peripheral pulses. LABORATORY DATA: EKG, sinus rhythm, there is no arrhythmias. Otherwise EKG is unremarkable. Echocardiogram showed the ejection fraction 55% to 60%, [id number] aortic stenosis, peak gradient 41 mmHg, mean gradient 24 mmHg. ASSESSMENT: 1. Small stroke in the posterior circulation. 2. Hccwclho-sm-oqnjzf aortic stenosis. 3. Prostate cancer, metastatic. PLAN: 1. We will place an outpatient monitor to screen for any atrial arrhythmias. He has had none here. 2. We will see in the office in about 6 weeks. Consideration for repeating an echocardiogram in about a year. No interventions indicated for the aortic valve at this point. Job ID: [id number]
--- NOTE | 2020-02-24 09:17 | PDOC.DS.DS ---
Provider - Provider Date of Admission: 02/22/20 09:24 Date of Discharge: 02/23/20 Admitting Provider: Yuliet Perla MD Consultations: Cardiology, Neurology Primary Care Physician: Dwain Swartz Course - Hospital Course Hospital Course: This is an 84-year-old male patient with a history of metastatic prostate cancer currently undergoing chemotherapy who presented overnight with unsteadiness and swaying towards his right side. Also complains of difficulty grabbing onto things prior to arrival however most of the symptoms have resolved at the time of initial assessment. Cardioembolic stroke. Initial CT scan concerning for left temporal occipital lesion. MRI confirmed this. He has no history of atrial fibrillation Patient was admitted and continued on aspirin and statin therapy. Permissive hypertension. Patient was evaluated by the various therapies however his neurologic status normalized. The nature of the scattered findings on his MRI was concerning for possible embolic source. Carotid Doppler revealed no hemodynamically significant stenosis. Echo did not reveal an embolic source. Neurology was consulted. Agreed with overall plan. Once the work-up was completed and the patient's symptoms had resolved he was f elt to be stable for discharge to home. -Aortic stenosis: Transthoracic echocardiogram concerning for moderate to severe aortic stenosis however no Thrombus noted Cardiology was consulted. Outpatient heart monitor placed. Metastatic prostate cancer Currently stable We will keep monitoring. Maintained antihormonal therapy VT prophylaxisLovenox CODE STATUSfull code Pertinent Studies: Chest x-ray revealed diffuse osseous metastatic disease, no evidence of pne umonia, small nodules of the right upper lobe possibly reflective of pulmonary metastases versus granulomas, moderate hiatal hernia, scarring throughout the lung bases. CT brain shows no acute intracranial abnormality. Carotid Doppler shows no hemodynamically significant stenosis on the basis of s onographic velocity criteria. MRI of the brain shows a focus of restricted diffusion consistent with acute infarction on the left parietal/temporal region. Inferior and posterior to this is an area of prior infarction. Echocardiogram shows ejection fraction of 55 to 60% with aortic valve sclerosis and reduced mobility of leaflets. Appears to have moderate to severe aortic valve stenosis with peak gradient of 41 mmHg and mean gradient of 24 mmHg. Resuscitation Status: 02/21/20 23:24 Resuscitation Status Routine Co-Sign Provider: Resuscitation Status: FULL: Full Resuscitation Discussed with: patient - Labs Lab Results: 02/22/20 02:18 02/22/20 02:18 Microbiology - Entire Visit 02/21/20 22:53 Urine voided Urine Culture - Final NO GROWTH AT 36 HOURS - Physical Exam Vitals: Weight Weight 201 lb 15.095 oz Physical Exam: The patient was seen and examined on the day of discharge. Heart was regular, lungs were clear. Neurologically the patient had no signific ant deficits. Problem - Problem (1) Aortic stenosis Code(s): I35.0 - NONRHEUMATIC AORTIC (VALVE) STENOSIS Status: Acute (2) Acute CVA (cerebrovascular accident) Code(s): I63.9 - CEREBRAL INFARCTION, UNSPECIFIED Status: Acute (3) Hypertension Code(s): I10 - ESSENTIAL (PRIMARY) HYPERTENSION Status: Chronic (4) Prostate cancer metastatic to bone Code(s): C61 - MALIGNANT NEOPLASM OF PROSTATE; C79.51 - SECONDARY MALIGNANT NEOPLASM OF BONE Status: Chronic - Time spent with Patient (mins): 35 Plan - Discharge Medications Prescriptions: Aspirin [Adult Low Dose Aspirin EC] 81 mg PO DAILY #30 tablet. Atorvastatin Calcium [Lipitor] 40 mg PO HS #30 tab Home Medications: Medication Instructions Recorded Confirmed Type Amlodipine [Norvasc] 5 mg PO DAILY 02/22/20 02/22/20 History Enzalutamide [Xtandi] 120 mg PO DAILY 02/22/20 02/22/20 History Furosemide [Lasix] 20 mg PO DAILY PRN 02/22/20 02/22/20 History Lisinopril [Zestril] 20 mg PO DAILY 02/22/20 02/22/20 History Ondansetron [Zofran ODT] 8 mg PO DAILY 02/22/20 02/22/20 History Potassium Chloride 10 meq PO DAILY 02/22/20 02/22/20 History Prochlorperazine Maleate 10 mg PO DAILY 02/22/20 02/22/20 History Aspirin [Adult Low Dose Aspirin EC] 81 mg PO DAILY #30 tablet. 02/23/20 Rx Atorvastatin Calcium [Lipitor] 40 mg PO HS #30 tab 02/23/20 Rx Allergies: No Known Drug Allergies Allergy (Verified 02/22/20 03:50) pt denies allergies - Discharge Instructions Discharge Instructions:: Dr. Mclaughlin's office will arrange for followup in 5 weeks. Activity:: Activity as Tolerated Nourishment:: Heart Healthy Diet Therapies:: Occupational Therapy, Physical Therapy - Follow up Plan Referrals: Yarelis Swartz-Trevon Gama MD [Primary Care Provider] - Tony Mclauhglin MD [Active] - Disposition: HOME Quality - Care Measures CORE MEASURES:: Stroke/TIA - Stroke/TIA Did you prescribe antithrombotic therapy?: Yes Did you prescribe anticoagulant for A Fib/Flutter?: No Specify reason for no DC anticoagulant: Treatment not indicated Did you prescribe a statin medication?: Yes
== END 2020-02-23 14:29 | disposition home or self-care (01) | DRG 65 ==
LOC: ERS 16:14 → 2SE 23:04 → OBSVTOIN 02-22 09:24
PROVIDERS: ADMIT Internal Medicine; ATTEND Internal Medicine
DX: I63.9 Cerebral infarction, unspecified (principal); C79.51 Secondary malignant neoplasm of bone; Z20.828 Contact with and (suspected) exposure to other viral communicable diseases; I10 Essential (primary) hypertension; C61 Malignant neoplasm of prostate; R00.0 Tachycardia, unspecified; I35.0 Nonrheumatic aortic (valve) stenosis; Z79.82 Long term (current) use of aspirin; Z92.21 Personal history of antineoplastic chemotherapy
CPT/HCPCS: 36415; 70450; 70553; 71045; 80048; 80053; 80061; 81003; 81015; 82550; 82607; 82746; 83036; 83605; 83735; 84443; 84484; 85025; 87086; 87635; 93005; 93306; 93880; 96372; 96374; A9579; G0378; J1650; S0028; U0003

== ENCOUNTER 2020-03-02 06:46 | Inpatient (IN) | payer MEDICARE ==
[2020-03-02] MEDS ORDERED: Pantoprazole 40 MG VIAL ONE (06:58)
--- NOTE | 2020-03-02 07:50 | CT ---
EXAM: CT brain without contrast HISTORY: Passed out while on the . Patient fell forward and hit face and head on the shower COMPARISON: 02/21/2020 TECHNIQUE: Multiple contiguous axial images were obtained and a CT of the brain without contrast. FINDINGS: There are scattered hypodensities in the subcortical and periventricular white matter consi stent with small vessel ischemic disease. More focal encephalomalacia is seen in the left parietal lobe. There is no evidence of hydrocephalus, intracranial hemorrhage, or extra-axial fluid collection . The calvarium and overlying soft tissues are unremarkable. The visualized paranasal sinuses and masto id air cells are well aerated. IMPRESSION: No evidence of acute intracranial abnormality
[2020-03-02 07:52] LABS: INR-International Normal Ratio 1.3; Prothrombin Time 16.9 sec (12.0-14.7)
--- NOTE | 2020-03-02 07:52 | CT ---
EXAM: CT of the cervical spine without contrast HISTORY: Neck pain after fall while passing out on the toilet. History of prostate cancer COMPARISON: Bone scan 01/26/2020 TECHNIQUE: Multiple contiguous axial images were obtained in a CT of the cervical spine without contr ast. Sagittal and coronal reformats were performed. FINDINGS: There are numerous sclerotic lesions in the bones consistent with osseous metastases. The v ertebral bodies demonstrate normal height and alignment without fracture or subluxation. Mild degenerative changes seen throughout cervical spine. No prevertebral soft tissue swelling is seen. The posterior facets are well aligned. Normal alignment of the skull base with the cervical spine is seen. The lung apices and cervical soft tissues are unremarkable. IMPRESSION: 1. No evidence of acute osseous abnormality of the cervical spine. 2. Diffuse osseous metastatic disease from prostate cancer
--- NOTE | 2020-03-02 07:54 | CT ---
EXAM: CT face without contrast HISTORY: Facial trauma after passing out on the toilet COMPARISON: None TECHNIQUE: Multiple contiguous axial images were obtained and a CT of the face without contrast. Sagi ttal and coronal reformats were performed. FINDINGS: No facial fractures are identified. There is a laceration of the upper lip. Mild facial so ft tissue swelling is seen. The globes and retrobulbar soft tissues are unremarkable. The visualized paranasal sinuses are well aerated without evidence of opacification. The mastoid air cells are well aerated. Visualized intracranial structures are unremarkable. IMPRESSION: No evidence of facial fracture
[2020-03-02] MEDS ORDERED: Rocuronium Bromide 10 MG/ML (10ML VIAL) ONE (07:55)
[2020-03-02] MEDS ORDERED: Norepinephrine 4 MG/4 ML VIAL ONE (07:57)
[2020-03-02 08:01] LABS: D-Dimer Test 8.79 *mcg/mL (0.27-0.43)
[2020-03-02 08:02] LABS: ALT (SGPT) 23 U/L (8-55); AST (SGOT) 28 U/L (5-34); Alkaline Phosphatase 40 U/L (40-110); Anion Gap 13 mmol/L (10-20); BUN (Urea Nitrogen) 37 mg/dL (8.4-25.7); Bilirubin, Total 0.4 mg/dL (0.2-1.2); CK (CPK) 50 U/L (30-200); Calc. Creatinine Clearance 0 mL/min (70-130); Calcium 7.3 mg/dL (7.8-10.44); Carbon Dioxide 22 mmol/L (23-31); Chloride 106 mmol/L (98-107); Globulin 1.8 g/dL (2.4-3.5); Glucose 170 mg/dL (83-110); Hemoglobin 7.1 g/dL (14.0-18.0); Lipase 16 U/L (8-78); Mean Corpuscular HGB CONC 35.2 g/dL (32.0-36.0); Mean Corpuscular Hemoglobin 37.9 pg (27.0-31.0); Mean Platelet Volume 8.5 fL (7.4-10.4); Platelet Count 233 thou/uL (130-400); Potassium 3.9 mmol/L (3.5-5.1); Protein, Total 3.8 g/dL (5.8-8.1); RBC Distribution Width 11.2 % (11.5-14.5); Red Blood Cell (RBC) Count 1.88 mill/uL (4.70-6.10); Sodium 137 mmol/L (136-145); White Blood Cell (WBC) Count 18.1 thou/uL (4.8-10.8)
[2020-03-02] MEDS ORDERED: fentaNYL Citrate/PF 2,000 MCG in Sodium Chloride 0.9% 60 ML IV SCH ×3 (08:15→12:45)
[2020-03-02 08:20] LABS: Band 8 % (5-11); Lymphocytes 14 % (21-51); MDiff Complete? YES; Metamyelocyte 8 % (0-0); Monocytes 5 % (0-10); Myelocyte 19 % (0-0); Neutrophil 39 % (42-75); Nucleated RBC 3 % (0); Platelet Morphology Comment Appears Adequate; Polychromasia MODERATE = 3-4 cells (100X) (0-2/hpf); Reactive Lymphocytes 5 % (0-10); Reflex for Review?? YES
--- NOTE | 2020-03-02 08:33 | RAD ---
XR Chest 1 View Portable HISTORY: Respiratory failure COMPARISON: Earlier exam of 7:48 AM from same date FINDINGS: There is been interval placement of an endotracheal tube with just below the clavicular hea ds. A nasogastric tube can be traced into the stomach with tip excluded from film. No pneumothoraces are seen. The remainder of the exam is otherwise stable.
[2020-03-02 08:44] LABS: Actual Bicarbonate (HCO3a) 18.8 mEq/L (22-28); Analyzer IN Cardio ER; Base Excess (BEa) -6.5 mEq/L (-2.0 to +3.0); CO2 Tension 36.4 mmHg (35.0-45.0); Carboxyhemoglobin (COHb) 0.3 gm% (0.0-3.0); Hemoglobin (Hb) 9.4 g/dL (14.0-18.0); O2 Tension (PaO2), arterial 70.6 mmHg (> 60.0); pH, Arterial 7.33 (7.35-7.45)
[2020-03-02 08:48] LABS: Puncture Site LRA
[2020-03-02] MEDS ORDERED: Vancomycin 1 GM/200 ML BAG ONE (09:06)
[2020-03-02] MEDS ORDERED: Cefepime 2 GM VIAL ONE (09:06)
[2020-03-02 09:28] LABS: Bacteria/HPF None Seen HPF (None Seen); Bilirubin Negative (Negative); Blood, Urine Negative (Negative); Clarity Turbid (Clear); Glucose, Urine (Dipstick) Normal (Negative); Ketone, Urine Negative (Negative); Leukocyte Negative Leu/uL (Negative); Nitrite Negative (Negative); Protein, Urine (Dipstick) 30 mg/dL (Neg-Trace); RBC/HPF 0-3 HPF (0-3); Specific Gravity, Urine 1.024 (1.002-1.036); Squamous Epithelial 0-3 HPF (0-3); pH, Urine 5.5 (5.0-9.0)
[2020-03-02] MEDS ORDERED: PROPOFOL 0 ML ONE (09:37)
[2020-03-02] MEDS ORDERED: Propofol 1,000 MG/100 ML VIAL IV ONE (09:37)
[2020-03-02 10:37] LABS: SARS-CoV-2 NAA Rapid Test Not Detected (NotDetected)
[2020-03-02] MEDS ORDERED: Ondansetron PF 4 MG/2 ML Vial IVP PRN ×2 (11:48→12:24)
[2020-03-02] MEDS ORDERED: Fentanyl BOLUS 250 ML IVPB PRN ×2 (12:00→12:45)
[2020-03-02] MEDS ORDERED: Morphine 2 MG/ML VIAL SLOW IVP PRN ×2 (12:00→12:45)
[2020-03-02] MEDS ORDERED: Norepinephrine 8 MG in Dextrose 5% in Water 242 ML IVPB PRN (12:00)
[2020-03-02] MEDS ORDERED: Propofol 1,000 MG/100 ML VIAL IV PRN (12:00)
[2020-03-02] MEDS ORDERED: Lorazepam 2 MG/ML VIAL SLOW IVP PRN ×2 (12:00→12:45)
[2020-03-02] MEDS ORDERED: DISCONTINUE PREVIOUS NARCOTIC PAIN MEDICATIONS AND BENZODIAZEPINES FS SCH ×2 (12:00→12:45)
[2020-03-02] MEDS ORDERED: Propofol BOLUS 1,000 MG/100 ML VIAL IV PRN ×2 (12:00→12:45)
--- NOTE | 2020-03-02 12:03 | HP ---
PRIMARY CARE PROVIDER: Dwain Swartz MD CHIEF COMPLAINT: Passing out. HISTORY OF PRESENT ILLNESS: This is an 84-year-old male who presented to [facility] Emergency Department in transfer by EMS personnel after apparently sustaining a syncopal episode at home. The patient was sitting on his toilet when he passed out. While on the toilet, falling forward, lacerating his upper lip on the shower. The patient had a large laceration to the upper lip with increased amount of bleeding and was also noted by EMS personnel on arrival with black tarry stools with associated hypotension with systolics in the 80s. The patient's history is obtained after review of the electronic medical record as well as recent admission and discharge on 02/24/2020 for recent CVA in the left temporoparietal region. The patient was placed on aspirin 81 mg daily. The patient is unable to provide any history due to current mechanical ventilation and critical illness. In the emergency room, the patient was noted with severe hypotension and shock, receiving IV fluid boluses x2 L. The patient was also noted with initial hemoglobin of 7.2, receiving a total of 3 units of packed red blood cells due to ongoing hypotension. The patient became lethargic in the emergency room with concern for airway protection, at which point the patient was intubated and placed on mechanical ventilation. The patient also received 1 unit of fresh frozen plasma in addition to initiation of Levophed infusion. The patient was noted with systolics ranging from the 60s to mid 90s with titration of IV fluids, packed red blood cells, and vasopressor support. In the emergency room, the patient was noted with large amount of melenic stool as well as copious bright red blood through the NG tube. The patient did receive empiric IV antibiotic therapy including Levaquin, vancomycin, and cefepime after initial lactic acid was noted at 3.5. No specific focal infectious process was identified; however, the patient did receive these empirically. PAST MEDICAL HISTORY: 1. Metastatic prostate cancer with current antihormonal therapy. 2. Status post CVA of the left temporoparietal region, treated with aspirin and Lipitor. 3. Aortic stenosis, moderate to severe. 4. Hypertension. PAST SURGICAL HISTORY: No reported surgical history. CURRENT MEDICATIONS: Based on discharge summary on 02/24/2020: 1. Amlodipine 5 mg p.o. daily. 2. Xtandi 120 mg p.o. daily. 3. Lasix 20 mg p.o. daily p.r.n. 4. Lisinopril 20 mg p.o. daily. 5. Potassium chloride 10 mEq p.o. daily. 6. Prochlorprazine 10 mg p.o. daily p.r.n. 7. Enteric-coated aspirin 81 mg p.o. daily. 8. Lipitor 40 mg p.o. nightly. ALLERGIES: NO KNOWN DRUG ALLERGIES. FAMILY HISTORY: Positive for CVA. SOCIAL HISTORY: . Resides in [place], [place]. No current alcohol, tobacco, or illicit drug use. Retired. Ambulates with a cane or a rolling walker. REVIEW OF SYSTEMS: Unobtainable due to mechanical ventilation and respiratory failure. PHYSICAL EXAMINATION: VITAL SIGNS ON ADMISSION: Blood pressure 87/54, pulse 117, respiratory rate 20, temperature 97.9 degrees Fahrenheit, O2 saturation 96% on FiO2 of 60% by mechanical ventilation. GENERAL APPEARANCE: This is an ill-appearing 84-year-old male, on mechanical ventilation, lying on the [facility] with open laceration to the lip, with ET tube in place. Unresponsive to tactile or voice. HEENT: Pupils are minimally reactive to light and accommodation. Extraocular muscles are intact. No scleral icterus. No conjunctival injection. Nares patent. Dried blood noted where NG tube in place. Oropharynx with large laceration in the upper left lip with oozing of blood noted. ET tube in place with blood noted in the oral cavity. NECK: Supple. No cervical adenopathy. No thyromegaly. No carotid bruits. No JVD appreciated. CHEST: Lungs are clear to auscultation bilaterally. CARDIOVASCULAR: S1 and S2 with irregular rate and rhythm. Tachycardic. A 3/6 systolic ejection murmur in the left upper sternal border. ABDOMEN: Rounded, soft, nontender, and nondistended. Bowel sounds are diminished in all 4 quadrants. No palpable mass. No rebound or guarding noted. EXTREMITIES: Pale. Capillary refill 3 seconds. No asymmetric edema appreciated. Pulses are thready at the dorsalis pedis and posterior tibial arteries bilaterally. : Harper catheter in place with dark marine urine. NEUROLOGIC: Sedate and unresponsive on current mechanical ventilation. PERTINENT LABORATORY AND X-RAY FINDINGS: Sodium 137, potassium 3.9, chloride 106, CO2 of 22, BUN 37, creatinine 0.77, glucose 170, lactic acid level 3.5, and calcium 7.3. LFTs within normal limits. Troponin-I negative x1. BNP 21. Lipase 16. CBC showed a white blood cell count of 18.1, hemoglobin 7.1, hematocrit 20.2, MCV 107, and platelet count 233 with 39% neutrophils. PT 16.9, INR 1.3, PTT 30.0, and D-dimer 8.79. ABG dated 03/02/2020 at 8:29 a.m. showed a pH of 7.33, pCO2 of 36.4, PO2 of 70.6, and O2 saturation 91% on FiO2 of 40%. Urinalysis showed turbid specimen, positive protein with 4 to 6 wbc's per high-powered field, 21 to 50 hyaline casts. Stool Hemoccult positive x2 on 03/02/2020. Portable chest x-ray dated 03/02/2020 showed vascular prominence in bilateral lung aguilar. CT of the brain without contrast dated 03/02/2020 showed no acute intracranial process. CT of the facial bones dated 03/02/[address] of the cervical spine dated 03/02/2020, showed no evidence for fracture or dislocation. Diffuse osseous metastatic process noted. 2D transthoracic echocardiogram dated 02/22/2020, showed ejection fraction of 55% to 60%, moderate left atrial enlargement, sclerotic aortic valve with [id number] aortic valve stenosis with peak gradient of 41 mmHg. EKG dated 03/02/2020, by my interpretation, shows sinus tachycardia with heart rates in the 110s, normal R-wave progression noted in the precordial leads, left axis deviation, and no acute ST-T wave changes noted. ASSESSMENT AND PLAN: 1. Acute hemorrhagic shock secondary to gastrointestinal bleed. The patient will be admitted to the critical care unit. We will continue critical support with aggressive IV fluid hydration. We will transfuse an additional 2 units of packed red blood cells when available. Add fresh frozen plasma x3 units now. Bolus 3rd liter of normal saline now. Decrease propofol to 5 mcg/minute. Avoid anticoagulation and NSAIDs. GI consult placed and pending. Serial hemoglobin and hematocrit q.4 h. x3. Continue to titrate Levophed to maintain systolic blood pressure greater than or equal to 100. 2. Acute gastrointestinal bleed. See #1 above. GI consult pending. We will continue aggressive fluid resuscitation and transfusion of blood products. Likely upper gastrointestinal source. 3. Acute blood loss anemia. See #1 and #2 above. Serial hemoglobin and hematocrit monitoring and repeat CBC in the a.m. Continue Protonix 40 mg IV b.i.d. 4. Acute hypoxic respiratory failure. Continue mechanical ventilation with SIMV. Current FiO2 of 60%. Consult Pulmonology/Critical Care Service for ongoing ventilation management. Serial portable chest x-ray and ABG monitoring. 5. Syncopal episode. Suspect secondary to gastrointestinal bleed and hypotension. See management as outlined above. 6. Open lip extremity lip laceration, status post mechanical fall. We will consult General Surgery Service for evaluation and primary closure. 7. Metastatic prostate carcinoma, appears end stage process. May consider hospice options given overall clinical status. 8. Prophylaxis. Sequential compression devices while in bed. Protonix 40 mg IV b.i.d. 9. Code status is full. Surrogate medical decision maker is the patient's spouse. TIME SPENT: Total critical care time is 50 minutes. Job ID: [id number]
[2020-03-02] MEDS ORDERED: Ventilator Sedation Protocol 1 EACH FS ONE (12:24)
[2020-03-02] MEDS ORDERED: Acetaminophen 650 MG Suppository PR PRN (12:24)
[2020-03-02] MEDS ORDERED: Electrolyte Replacement Protocol 1 EACH FS SCH (12:24)
[2020-03-02] MEDS ORDERED: Ondansetron ODT 4 MG TAB PO PRN (12:24)
[2020-03-02] MEDS ORDERED: Norepinephrine 8 MG in Sodium Chloride 0.9% 250 ML 242 ML IVPB SCH (12:30)
[2020-03-02] MEDS ORDERED: Electrolyte Replacement Protocol FS PRN (12:45)
--- NOTE | 2020-03-02 13:45 | CON ---
DATE OF CONSULTATION: 03/02/2020 TIME SPENT: 35 minutes of critical care time. CONSULTING PHYSICIAN: Nash Kim. REASON FOR CONSULTATION: Critical care management. HISTORY OF PRESENT ILLNESS: The patient is an 84-year-old male, who apparently has been having bright red blood per rectum. Additionally, he fell and has a grade 4 laceration of his lip. He was intubated in the emergency room for control of his airway given the amount of bleeding he was having from his lip. He has had transfusion of blood products. He is also on Levophed through a central line. PAST MEDICAL HISTORY: 1. Metastatic prostate cancer. 2. Stroke to the left side. 3. Aortic stenosis, which is moderate to severe. 4. Hypertension. PAST SURGICAL HISTORY: None. MEDICATIONS: Prior to admission; 1. Amlodipine. 2. Xtandi. 3. Lasix. 4. Lisinopril. 5. Potassium. 6. Compazine. 7. Enteric-coated aspirin. 8. Lipitor. I also understand he is on Eliquis. FAMILY MEDICAL HISTORY: Remarkable for stroke. SOCIAL HISTORY: Does not smoke. Does not consume alcohol. Does not use illicit drugs. REVIEW OF SYSTEMS: Cannot be obtained because the patient is currently on mechanical ventilation. PHYSICAL EXAMINATION: VITAL SIGNS: Heart rate 104, blood pressure 80/52, O2 saturation 100%, and respiratory rate 17. GENERAL: The patient is actually awake on mechanical ventilation. He is able to nod to questions. HEENT: Remarkable for a grade 4 laceration of the upper lip near the midline. He is intubated orally. NECK: No adenopathy or JVD. CHEST: He has a cardiac event monitor on his sternum. He has a 3/6 holosystolic murmur at the left sternal border. LUNGS: Fairly clear. ABDOMEN: Soft, obese, and nontender. EXTREMITIES: No clubbing or cyanosis. LABORATORY DATA: ABG; pH of 7.33, pCO2 of 36, pO2 of 70 on SIMV rate 16, tidal volume 500, PEEP 5, pressure support 10, and FiO2 of 40%. Sodium 137, potassium 3.9, chloride 106, CO2 of 22, BUN 37, creatinine 0.7, and glucose 170. INR is 1.3. D-dimer was 8.7. White blood cell count 18.1, hemoglobin 7.1, hematocrit 20.2, and platelet count 233. His COVID test was negative. His x-ray shows no mass, effusion, or infiltrate. A cervical spine CT showed osseous metastasis from prostate cancer. Brain CT, no evidence of intracranial abnormality. ASSESSMENT: 1. Acute respiratory failure, requiring mechanical ventilation. 2. Lower gastrointestinal bleeding versus rapid upper gastrointestinal bleeding. 3. Anemia due to blood loss. 4. Grade 4 laceration of the lip after fall. 5. Severe aortic stenosis per echocardiogram from 02/22/2020, read by Dr. Mclaughlin. RECOMMENDATIONS: 1. Continue to transfuse and check hematocrit as you are doing. 2. I have consulted Dr. Shaikh from General Surgery to look at the lip to see if it needs to be sewed up. 3. The patient is being empirically covered with antibiotics. 4. Wean off vasopressors as tolerated. Job ID: [id number]
[2020-03-02 13:47] LABS: Hemoglobin 6.1 g/dL (14.0-18.0); Platelet Count 150 thou/uL (130-400)
[2020-03-02] MEDS ORDERED: Lidocaine 1% w/Epinephrine 1:100K 20 ML VIAL FS SCH (15:15)
[2020-03-02] MEDS: Norepinephrine 8 MG in Dextrose 5% in Water 242 ML IVPB SCH ×3 (15:43→22:08)
[2020-03-02] MEDS ORDERED: Midazolam HCl 2 mg/2 ml Vial ONE ×2 (16:42→17:04)
[2020-03-02] MEDS ORDERED: Bacitracin Zinc Ointment 30 gm TUBE ONE (17:54)
[2020-03-02 18:30] VITALS: BMI 29.6
[2020-03-02 19:00] LABS: Hemoglobin 8.4 g/dL (14.0-18.0); Platelet Count 141 thou/uL (130-400)
[2020-03-02] MEDS ORDERED: Bacitracin 1 PK TOP PRN (19:47)
[2020-03-02] MEDS: Chlorhexidine Gluconate 15 ML UDCUP SSP SCH (20:52)
[2020-03-02] MEDS: Cefepime 2 GM in Sodium Chloride 0.9% 100 ML IVPB SCH (20:52)
[2020-03-02] MEDS: Pantoprazole 40 MG VIAL IVP SCH (20:53)
[2020-03-02] MEDS: Sodium Chloride 0.9% 1,000 ML IV SCH (20:58)
[2020-03-02 21:54] LABS: Hemoglobin 8.4 g/dL (14.0-18.0); Platelet Count 170 thou/uL (130-400)
--- NOTE | 2020-03-03 01:18 | OP ---
DATE OF PROCEDURE: 03/02/2020 OPERATIVE PROCEDURE: 1. Esophagogastroduodenoscopy. 2. Esophagogastroduodenoscopy with 10-German BICAP probe of the ulcer in the duodenum. PREOPERATIVE DIAGNOSES: Acute upper gastrointestinal bleeding, hypotension, anemia due to blood loss. POSTOPERATIVE DIAGNOSES: 1. Large amount of blood clot starting from the posterior pharynx, running the entire length of the esophagus, into the proximal stomach and fundus. 2. No fresh blood or any active bleeding seen in the stomach. 3. Two ulcers in the duodenal bulb, one ulcer measured approximately about 2 cm with erythematous base, another ulcer measured approximately 1 cm. 4. Descending duodenum had black clots with no bleeding seen. PROCEDURE IN DETAIL: The patient was placed on his left lateral position. The patient already on the ventilator. The patient given sedation by Anesthesia Department. A Pentax video gastroscope under direct vision passed down the oropharynx. The gastroscope was advanced into the posterior pharynx. He had large blood clots. The scope advanced into the esophagus and the blood clots were found in the entire length of the esophagus into the gastric fundus and the proximal stomach. The esophagus was found to be distended. The clots occupied most of the esophageal lumen. The GE junction, again no active bleeding seen. Retroflexion showed a very large blood clot occupying the fundus of stomach. I did not see active bleeding or any bumper. The gastric mucosa was coated with some heme staining. Water was irrigated and washed out. I do not see any underlying pathology. The fundus and cardia could not very well visualized because of blood clots. The duodenal bulb showed a large ulceration and probably measured about 2 cm. The ulcer base was somewhat erythematous. There was another ulcer below the above-mentioned ulcer. This also was quite large and deep. . The descending duodenum had blood clots. Water was irrigated and washed out. I do not see any active bleeding . The scope was withdrawn back to duodenal bulb and the ulcer base was cauterized with a 10-German BICAP probe with good hemostasis. The stomach decompressed and the scope removed. RECOMMENDATION: 1. IV PPI. 2. Serial H and H. 3. Transfuse p.r.n. 4. May repeat EGD tomorrow as the entire esophagus was not visualized including the fundus and cardia. Job ID: [id number]
[2020-03-03] MEDS: Norepinephrine 8 MG in Dextrose 5% in Water 242 ML IVPB SCH ×4 (01:42→17:14)
[2020-03-03 03:42] LABS: ALT (SGPT) 19 U/L (8-55); AST (SGOT) 24 U/L (5-34); Albumin 2.1 g/dL (3.4-4.8); Alkaline Phosphatase 43 U/L (40-110); Anion Gap 9 mmol/L (10-20); BUN (Urea Nitrogen) 41 mg/dL (8.4-25.7); Bilirubin, Total 0.6 mg/dL (0.2-1.2); Calc. Creatinine Clearance 90 mL/min (70-130); Calcium 6.3 mg/dL (7.8-10.44); Carbon Dioxide 23 mmol/L (23-31); Chloride 110 mmol/L (98-107); Globulin 1.7 g/dL (2.4-3.5); Glucose 187 mg/dL (83-110); Potassium 4.2 mmol/L (3.5-5.1); Protein, Total 3.8 g/dL (5.8-8.1); Sodium 138 mmol/L (136-145)
[2020-03-03] MEDS: Propofol 1,000 MG/100 ML VIAL IV PRN ×2 (04:26→20:16)
[2020-03-03 04:54] LABS: Band 14 % (5-11); Hemoglobin 8.4 g/dL (14.0-18.0); Lymphocytes 9 % (21-51); MDiff Complete? YES; Mean Corpuscular HGB CONC 36.1 g/dL (32.0-36.0); Mean Corpuscular Hemoglobin 34.1 pg (27.0-31.0); Mean Corpuscular Volume 94.4 fL (78.0-98.0); Mean Platelet Volume 8.7 fL (7.4-10.4); Metamyelocyte 6 % (0-0); Monocytes 4 % (0-10); Myelocyte 7 % (0-0); Neutrophil 57 % (42-75); Nucleated RBC 4 % (0); Platelet Count 183 thou/uL (130-400); RBC Distribution Width 14.9 % (11.5-14.5); Reactive Lymphocytes 3 % (0-10); Red Blood Cell (RBC) Count 2.46 mill/uL (4.70-6.10); White Blood Cell (WBC) Count 27.5 thou/uL (4.8-10.8)
[2020-03-03] MEDS: Sodium Chloride 0.9% 1,000 ML IV SCH ×2 (06:11→17:14)
[2020-03-03 07:31] LABS: Actual Bicarbonate (HCO3a) 18.4 mEq/L (22-28); Base Excess (BEa) -5.2 mEq/L (-2.0 to +3.0); CO2 Tension 29.4 mmHg (35.0-45.0); Calcium, Ionized (arterial) 0.98 mmol/L (1.12-1.30); Carboxyhemoglobin (COHb) 0.4 gm% (0.0-3.0); Hemoglobin (Hb) 9.5 g/dL (14.0-18.0); Potassium - ABG Lab 3.98 mmol/L (3.70-5.30); pH, Arterial 7.42 (7.35-7.45)
[2020-03-03 08:05] LABS: Puncture Site RBA
--- NOTE | 2020-03-03 08:05 | RAD ---
XR Chest 1 View Portable History: Respiratory failure Comparison: Radiograph prior day Findings: Left subclavian central venous catheter tip projects of the azygos vein. Recording device p rojects over the mid chest. Moderate effusions. Endotracheal tube tip just below the clavicles. Opacities are similar. Abnormal sclerotic foci of the axial and appendicular skeleton. Impression: Similar examination of the chest without improved lung aeration.
--- NOTE | 2020-03-03 08:34 | CON ---
DATE OF CONSULTATION: 03/02/2020 ADDITIONAL REFERRING DOCTOR: Dr. Nash Kim. REASON FOR CONSULTATION: Acute GI bleeding, syncope, anemia due to blood loss. HISTORY OF PRESENT ILLNESS: Mr. Alley De Leon is a very pleasant 84-year-old male with history of stage IV prostate carcinoma. He was scheduled to see Dr. Swanson therapy a week ago. The patient was admitted 10 days ago in this hospital because of some poor balance and unsteady gait. He underwent evaluation including CAT scan of the head. CAT scan does show a parietotemporal infarct. He was seen by Neurology. He was also seen by Dr. Ke Mclaughlin because of atrial fibrillation. The patient was actually discharged over a week ago from this hospital. Apparently, ambulance was called after he passed out in the house and he struck his face and head especially. The patient was brought to the ER by EMS. He was hypotensive in the ER. He had a split lip, which is quite large and gash and he is bleeding actively from the area. The patient was intubated and was placed on ventilator. Because of hypotension and severe anemia, the patient has been transfused 3 units of blood in the ER. He is also started on Levophed because of hypotension. He was sent to ICU because of GI bleeding. He is still on Levophed. He is on the ventilator and being sedated. His pressure is better than when he came to the ER with a blood pressure of around 105/60. His pulse is 110 to 115. The patient is on the ventilator and no further history could be obtained. There is no relevant history. MEDICAL ILLNESSES: 1. Metastatic prostate cancer. 2. Status post CVA of left temporoparietal region by CAT scan and his symptom was mostly unsteady gait and poor balance, but he had no motor weakness. 3. Aortic stenosis. 4. Hypertension. 5. Atrial fibrillation diagnosed recently. SURGERIES: None. ALLERGIES: NONE. SOCIAL HISTORY: He is . No history of smoking, drug abuse, or alcohol abuse. MEDICATIONS: Include: 1. Amlodipine 5 mg once a day. 2. Xtandi 120 daily. 3. Lasix 20 once a day. 4. Lisinopril 20 once a day. 5. Potassium chloride 10 mEq once a day. 6. Prochlorperazine. 7. Aspirin. 8. Lipitor. FAMILY HISTORY: CVA. REVIEW OF SYSTEMS: Ten-point system review, not able to obtain. PHYSICAL EXAMINATION: GENERAL: He is an elderly male on the ventilator. There is a deep upper lip gash almost split open, quite deep. He has had some bleeding from the throat draining quite a bit of fresh blood. VITAL SIGNS: His pulse is 112, blood pressure is 105/60. HEENT: Conjunctivae are clear. CARDIOVASCULAR SYSTEM: Normal heart sounds. He has a systolic murmur. LUNGS: Clear to auscultation. ABDOMEN: Soft. Abdomen is nondistended. Abdomen is nontender. No organomegaly. EXTREMITIES: Reveal no edema. LABORATORY DATA: From this morning, WBC 18,100, hemoglobin 7.1, hematocrit 20.2, MCV 107, platelet count 233,000, polymorphs 39, bands 8, lymphocytes 14, myelocytes 19, metamyelocytes 8. Repeat H and H at 1:30 afternoon shows hemoglobin 6.1, hematocrit 17.4, platelet count 150,000. Coagulation profile, the PT is 16.9, INR 1.3, which is normal. D-dimer is 8.79. Chemistry panel, normal lytes, BUN is 37, . Creatinine 0.77, glucose 170, calcium 7.7, bilirubin 0.4, AST 28, ALT 23, alkaline phosphatase 40, CPK 50, albumin 2, globulin is 1.8. CLINICAL IMPRESSION: 1. Acute upper gastrointestinal bleeding, etiology unclear. He seemed to have bleeding from multiple areas including a split lip and also from posterior pharynx. The tube in the throat area suctioning quite a bit of fresh blood. He has had 2 bloody stools since admission. The last one was . The blood loss could have multiple factors including upper gastrointestinal bleeding, bleeding from the posterior pharynx, and also from . 2. Recent cerebrovascular accident with no residual weakness. 3. Hypertension. 4. Metastatic prostate cancer, undergoing chemotherapy. RECOMMENDATIONS: 1. Transfuse one more unit of packed RBCs. 2. . 3. Serial H and H. 4. Perform EGD today and I will make further recommendation. His signed the permission for the EGD. Job ID: [id number]
[2020-03-03] MEDS ORDERED: FLU VACC QS2020-21(65YR UP)/PF 240 MCG/0.7 ML SYRINGE IM ONE (09:00)
--- NOTE | 2020-03-03 09:12 | PRG ---
DATE OF SERVICE: 03/03/2020 35 minutes critical care time. SUBJECTIVE: The patient remains intubated on mechanical ventilation. GI note and operative report were reviewed. OBJECTIVE: VITAL SIGNS: Temperature 98.3, pulse 101, blood pressure 100/59, O2 saturation 100%. He is still on Levophed at 25 mcg/minute. 24-hour intake 4399, output 887. HEENT: Remarkable for a repaired upper lip. Oropharynx intubated. NECK: No adenopathy or JVD. LUNGS: Coarse breath sounds. CARDIAC: S1 and S2. Regular. ABDOMEN: Soft and nontender. EXTREMITIES: No edema. IMAGING: His x-ray shows bilateral infiltrative changes. LABORATORY DATA: PH of 7.42, pCO2 of 29, PO2 of 102 on SIMV rate 16, tidal volume 500, PEEP 5, pressure support of 10, FiO2 of 50%. White blood cell count 27.5, hematocrit 23.3, and platelet count 183. Sodium 138, potassium 4.2, chloride 110, CO2 of 23, BUN 41, creatinine 0.8, glucose 187. ASSESSMENT: 1. Status post fall with upper lip avulsion requiring repair. 2. Acute respiratory failure requiring mechanical ventilation. 3. Gastrointestinal bleeding-likely duodenal ulcers at the culprit. 4. Severe aortic stenosis. 5. History of stroke. 6. History of prostate cancer with metastasis. PLAN: 1. The patient will be kept intubated because of possible need for second-look endoscopy today. 2. I will turn down mechanical ventilation rate. 3. He is continuing on empiric antibiotics. 4. We will trend his CBC. 5. Hopefully, extubate by tomorrow if he does well today. Job ID: [id number]
[2020-03-03] MEDS ORDERED: Rocuronium Bromide 10 MG/ML (10ML VIAL) ONE (09:20)
[2020-03-03] MEDS: Cefepime 2 GM in Sodium Chloride 0.9% 100 ML IVPB SCH ×2 (09:48→19:58)
[2020-03-03] MEDS: Pantoprazole 40 MG VIAL IVP SCH ×2 (09:49→19:58)
[2020-03-03] MEDS: Chlorhexidine Gluconate 15 ML UDCUP SSP SCH ×2 (09:50→19:58)
[2020-03-03 11:28] LABS: Hemoglobin 7.7 g/dL (14.0-18.0); Platelet Count 192 thou/uL (130-400)
[2020-03-03 11:42] LABS: Lactic Acid 1.2 mmol/L (0.5-2.2)
[2020-03-03] MEDS ORDERED: Ketamine 50 MG/ML (10ML VIAL) ONE (12:23)
[2020-03-03 15:58] LABS: Anisocytosis MODERATE=16-30 cells (100X) (0-5/hpf); Band 16 % (5-11); Hemoglobin 7.5 g/dL (14.0-18.0); Lymphocytes 7 % (21-51); MDiff Complete? YES; Mean Corpuscular HGB CONC 35.2 g/dL (32.0-36.0); Mean Corpuscular Hemoglobin 33.8 pg (27.0-31.0); Mean Corpuscular Volume 95.9 fL (78.0-98.0); Mean Platelet Volume 8.2 fL (7.4-10.4); Metamyelocyte 3 % (0-0); Monocytes 5 % (0-10); Myelocyte 2 % (0-0); Neutrophil 65 % (42-75); Nucleated RBC 4 % (0); Platelet Count 187 thou/uL (130-400); Platelet Morphology Comment Appears Adequate; Polychromasia MODERATE = 3-4 cells (100X) (0-2/hpf); RBC Distribution Width 14.8 % (11.5-14.5); Reactive Lymphocytes 2 % (0-10); Red Blood Cell (RBC) Count 2.22 mill/uL (4.70-6.10); Target Cells SLIGHT = 2-5 cells (100X) (0-1/hpf); White Blood Cell (WBC) Count 27.4 thou/uL (4.8-10.8)
[2020-03-03] MEDS ORDERED: Magnesium Sulfate 4 GM in Sodium Chloride 0.9% 250 ML 250 ML IVPB SCH (19:15)
--- NOTE | 2020-03-03 20:16 | PDOC.HOSPP ---
- Subjective Encounter Date: 03/03/20 Encounter Time: 19:00 non-verbal Subjective: Patient seen and examined for GI bleeding with respiratory failure and hypotension. Remains on mechanical ventilation. Status post repeat EGD today. Events noted. Remains on pressors. - Objective Vital Signs & Weight: Vital Signs (12 hours) Temp Pulse Resp BP 03/03/20 18:27 102 H 97/59 L 03/03/20 18:00 24 H 03/03/20 16:00 98.4 F 20 03/03/20 14:00 15 03/03/20 12:00 98.9 F 16 03/03/20 11:02 100 03/03/20 10:00 20 Weight Admit Weight 218 lb 7.649 oz Weight 218 lb 7.649 oz Most Recent Monitor Data Heart Rate from ECG 103 NIBP 106/57 NIBP BP-Mean 81 Respiration from ECG 13 SpO2 100 I&O: 03/02/20 03/03/20 03/04/20 06:59 06:59 06:59 Intake Total 4399.0 1518 Output Total 887 1305 Balance 3512.0 213 Result Diagrams: 03/04/20 04:20 03/04/20 04:20 Additional Labs: Abnormal Lab Results - Last 48 hrs 03/02/20 07:17: Crossmatch See Detail 03/02/20 08:58: Urine Clarity Turbid A, Urine Protein 30 A, Urine Urobilinogen 2.0 A, Urine WBC 4-6 A, Hyaline Casts 21-50 A, Granular Casts 0-3 A 03/02/20 10:10: Lactic Acid 3.0 H 03/02/20 13:30: Hgb 6.1 L, Hct 17.4 L 03/02/20 14:31: Crossmatch See Detail 03/02/20 18:52: Hgb 8.4 L, Hct 23.7 L 03/02/20 21:14: Hgb 8.4 L, Hct 24.7 L 03/03/20 03:05: Chloride 110 H, Anion Gap 9 L, BUN 41 H, Calcium 6.3 L, Serum Total Protein 3.8 L, Albumin 2.1 L, Globulin 1.7 L 03/03/20 03:05: WBC 27.5 H, RBC 2.46 L, Hgb 8.4 L, Hct 23.3 L, MCH 34.1 H, MCHC 36.1 H, RDW 14.9 H, Band Neuts % (Manual) 14 H, Lymphocytes % (Manual) 9 L, Myelocytes % 7 H, Nucleated RBCs # (Man) 4 H 03/03/20 07:11: Bicarbonate Actual 18.4 L, ABG pCO2 29.4 L, ABG pO2 102.0 H, ABG O2 Content 13.1 L, ABG Base Excess -5.2 L, ABG Hematocrit 28.0 L, ABG Hemoglobin 9.5 L, A-a O2 Gradient 217.750 H, Sodium 133 L, Ionized Calcium 0.98 L, Chloride 111 H 03/03/20 11:14: Hgb 7.7 L, Hct 22.4 L 03/03/20 15:30: WBC 27.4 H, RBC 2.22 L, Hgb 7.5 L, Hct 21.3 L, MCH 33.8 H, RDW 14.8 H, Band Neuts % (Manual) 16 H, Lymphocytes % (Manual) 7 L, Myelocytes % 2 H, Nucleated RBCs # (Man) 4 H, Polychromasia MODERATE = 3-4 cells H, Anisocytosis MODERATE=16-30 cells H 03/03/20 22:15: Hgb 6.6 L, Hct 19.0 L 03/04/20 04:20: Chloride 112 H, Carbon Dioxide 22 L, Anion Gap 9 L, BUN 30 H, Creatinine 0.62 L, Calcium 6.1 L, Serum Total Protein 3.8 L, Albumin 2.0 L, Globulin 1.8 L, Albumin/Globulin Ratio 1.1 L Microbiology - Entire Visit 03/02/20 07:53 Venous blood - Right Arm Blood Culture - Preliminary Specimen has been received and culture in progress. No Growth to date. 03/02/20 07:17 Venous blood - Right Arm Blood Culture - Preliminary Specimen has been received and culture in progress. No Growth to date. 03/02/20 07:08 Stool - Pending Stool Occult Blood ([facility]) - Final EKG Reviewed by me: Yes (Sinus tachycardia) Hospitalist ROS - Review of Systems ROS unobtainable: due to endotracheal tube - Medication Medications: Active Medications Generic Name Dose Route Start Last Admin Trade Name Freq PRN Reason Stop Dose Admin Bacitracin 1 pk 03/02/20 19:47 03/03/20 03:42 Bacitracin 1 Pk TOP 1 pk PRN PRN Administration TO SKIN OF UPPER LIP Chlorhexidine Gluconate 15 ml 03/02/20 21:00 03/03/20 19:58 Chlorhexidine Gluconate 15 Ml Udcup SSP 15 ml BID EDIS Administration Cefepime HCl 2 gm/ Sodium 100 mls @ 200 mls/hr 03/02/20 21:00 03/03/20 19:58 Chloride IVPB 100 mls Q12HR EDIS Administration Norepinephrine Bitartrate 8 mg 250 mls @ 0 mls/hr 03/02/20 12:45 03/03/20 17:14 / Dextrose/Water IVPB 250 mls INF EDIS Administration Protocol Titrate Fentanyl Citrate 2,000 mcg/ 100 mls @ 0 mls/hr 03/02/20 12:45 03/03/20 02:18 Sodium Chloride IV 04/01/20 12:45 100 mls INF EDIS Administration Protocol Per Protocol Sodium Chloride 1,000 mls @ 100 mls/hr 03/02/20 20:15 03/03/20 17:14 Normal Saline 0.9% IV 1,000 mls .Q10H EDIS Administration Magnesium Sulfate 4 gm/ Sodium 258 mls @ 86 mls/hr 03/03/20 19:15 03/03/20 19:58 Chloride IVPB 03/03/20 23:59 258 mls NOW EDIS Administration Pantoprazole Sodium 40 mg 03/02/20 21:00 03/03/20 19:58 Pantoprazole 40 Mg Vial IVP 40 mg Q12HR EDIS Administration Propofol 1,000 mg 03/02/20 12:45 03/03/20 20:16 Propofol 1,000 Mg/100 Ml Vial IV 04/01/20 12:45 1,000 mg INF PRN Administration TO ACHIEVE GOAL RASS Protocol - Exam General Appearance: ill appearing Eye: PERRL, anicteric sclera ENT: normocephalic atraumatic, no oropharyngeal lesions Neck: supple, no JVD Heart: RRR, no gallops, no rubs, normal peripheral pulses Respiratory: no wheezes, no rales, no ronchi, rhonchi Gastrointestinal: soft, non-tender, non-distended, normal bowel sounds Extremities: no cyanosis, no clubbing Neurological - other findings: Neuro/psych exam limited due to current mentation Hosp A/P - Plan DVT proph w/SCDs Patient is a 84-year-old male with metastatic prostate cancer, aortic stenosis, hypertension with recent CVA on aspirin presented to the emergency room on 03/02 with lower GI bleeding and syncope/fall. He fell forward lacerating his upper lip on the shower.. His blood pressure was 84 systolic by EMS. He also felt lightheaded and dizzy. His EKG showed sinus tachycardia with PVCs. CT scan of the head and neck was negative. Due to persistent hypotension with ongoing GI bleeding he received 3 units of PRBC with 4 units of FFP in the emergency room. He was started on Levophed drip. Due to hemodynamic instability he was intubated and placed on mechanical ventilation. Please refer to the history and physical for further details. The patient was admitted to the intensive care unit with a diagnosis of hemorrhagic shock due to GI bleeding. He underwent EGD by Dr. Mahmood on 03/02 that showed large amount of blood clots starting from the posterior pharynx running the entire length of the esophagus into the proximal stomach and fundus. He also had 2 ulcers in the duodenal bulb1 ulcer measured approximately 2 cm with erythematous base and under the ulcer measured approximately 1 cm. Descending duodenum had black clots with no active bleeding. Patient had a r epeat EGD done on 03/03. He received total of 6 units of PRBC this hospital stay. Patient was also seen by oral maxillofacial surgeon for lip laceration which was repaired. CT of the facial bones was negative for evidence for facial fractures. Assessment: Acute hemorrhagic shock due to GI bleeding requiring pressors Acute blood loss anemia acute hypoxic respiratory failure requiring mechanical ventilation Syncope due to severe hypotension Hypokalemia/hypomagnesemia/hypophosphatemia Lactic acidosis due to hypotension Lip laceration due to mechanical fall from hypotension Leukocytosis with left shiftsuspected sepsis of unclear etiologyPOA History of hypertension History of metastatic prostate cancer Recent CVA in the left parietal/temporal regionpatient was discharged on 02/22 on aspirin History of severe aortic stenosis Plan: Continue CCU monitoring. Monitor H&H closely. Replace electrolytes. Continue IV PPIs. Transfuse as needed. N.p.o. Gentle hydration GI, oral surgeon and critical care input appreciated. Continue ventilation sedation protocol. A.m. labs.
[2020-03-03 22:25] LABS: Hemoglobin 6.6 g/dL (14.0-18.0); Platelet Count 188 thou/uL (130-400)
[2020-03-04 05:13] LABS: ALT (SGPT) 15 U/L (8-55); AST (SGOT) 20 U/L (5-34); Alkaline Phosphatase 42 U/L (40-110); Anion Gap 9 mmol/L (10-20); BUN (Urea Nitrogen) 30 mg/dL (8.4-25.7); Bilirubin, Total 0.8 mg/dL (0.2-1.2); Calc. Creatinine Clearance 122 mL/min (70-130); Calcium 6.1 mg/dL (7.8-10.44); Carbon Dioxide 22 mmol/L (23-31); Chloride 112 mmol/L (98-107); Globulin 1.8 g/dL (2.4-3.5); Glucose 116 mg/dL (83-110); Magnesium 2.6 mg/dL (1.6-2.6); Phosphorus 1.5 mg/dL (2.3-4.7); Potassium 3.6 mmol/L (3.5-5.1); Protein, Total 3.8 g/dL (5.8-8.1); Sodium 139 mmol/L (136-145)
[2020-03-04] MEDS ORDERED: Potassium Phosphate 22 MMOL in Sodium Chloride 0.9% 250 ML 250 ML IVPB SCH (05:30)
[2020-03-04 05:46] LABS: Band 11 % (5-11); Hemoglobin 7.5 g/dL (14.0-18.0); Lymphocytes 10 % (21-51); MDiff Complete? YES; Mean Corpuscular HGB CONC 35.1 g/dL (32.0-36.0); Mean Corpuscular Hemoglobin 33.4 pg (27.0-31.0); Mean Corpuscular Volume 95.2 fL (78.0-98.0); Metamyelocyte 1 % (0-0); Monocytes 6 % (0-10); Myelocyte 5 % (0-0); Neutrophil 65 % (42-75); Nucleated RBC 1 % (0); Platelet Count 167 thou/uL (130-400); RBC Distribution Width 14.2 % (11.5-14.5); Reactive Lymphocytes 2 % (0-10); Red Blood Cell (RBC) Count 2.23 mill/uL (4.70-6.10); White Blood Cell (WBC) Count 20.6 thou/uL (4.8-10.8)
[2020-03-04] MEDS: Sodium Chloride 0.9% 1,000 ML IV SCH (06:41)
[2020-03-04 07:44] LABS: Actual Bicarbonate (HCO3a) 19.8 mEq/L (22-28); Carboxyhemoglobin (COHb) 0.5 gm% (0.0-3.0); Hemoglobin (Hb) 9.9 g/dL (14.0-18.0); O2 Tension (PaO2), arterial 111.6 mmHg (> 60.0); Potassium - ABG Lab 3.62 mmol/L (3.70-5.30); pH, Arterial 7.47 (7.35-7.45)
[2020-03-04 08:10] LABS: Puncture Site RRA
--- NOTE | 2020-03-04 08:15 | RAD ---
CHEST 1 VIEW: HISTORY: Respiratory failure. COMPARISON: Prior day's study. FINDINGS: Heart size is within normal limits. The pleural and parenchymal lung changes are stable. Endotrache al tube is unchanged. NG tube has been removed. Left subclavian line is unchanged in position. IMPRESSION: Fairly stable chest. Interval removal of the nasogastric tube. Slight decrease in the atelectasis i n the right lung base. Otherwise, stable exam. POS: DARON
[2020-03-04] MEDS ORDERED: Dextrose 5 % And 0.9 % NaCl 1,000 ML IV SCH (09:00)
[2020-03-04] MEDS: Cefepime 2 GM in Sodium Chloride 0.9% 100 ML IVPB SCH ×2 (09:10→20:39)
[2020-03-04] MEDS: Propofol 1,000 MG/100 ML VIAL IV PRN ×2 (09:10→09:41)
[2020-03-04] MEDS: Pantoprazole 40 MG VIAL IVP SCH ×2 (09:11→20:39)
[2020-03-04] MEDS: Chlorhexidine Gluconate 15 ML UDCUP SSP SCH ×2 (09:11→20:39)
[2020-03-04] MEDS ORDERED: DC Sedation Protocol FS ONE (10:00)
[2020-03-04] MEDS: Dextrose 5 % And 0.9 % NaCl 1,000 ML IV SCH (10:23)
--- NOTE | 2020-03-04 10:23 | PRG ---
DATE OF SERVICE: 03/04/2020 35 minutes of critical care time. SUBJECTIVE: The patient is awake, alert, follows commands. He remains intubated on mechanical ventilation. OBJECTIVE: VITAL SIGNS: Temperature 98.7, pulse 76, blood pressure 114/56, O2 saturation 100%. HEENT: Unremarkable except for the lip laceration has been sewed. NECK: No adenopathy or JVD. LUNGS: Clear anteriorly. CARDIOVASCULAR: S1 and S2. Regular. ABDOMEN: Soft, nontender. EXTREMITIES: No edema. NEUROLOGIC: He moves all 4 extremities without difficulty. LABORATORY DATA: Sodium 139, potassium 3.6, chloride 112, CO2 of 22, BUN 30, creatinine 0.6, glucose 116, phosphorus 1.5. White blood cell count 20.6, hemoglobin 7.5, hematocrit 21.2, and platelet count 165. PH of 7.47, pCO2 of 28, pO2 of 112. His x-ray is stable. ASSESSMENT: 1. Status post fall with traumatic injury to his lip and large amount of blood loss. 2. Duodenal ulcers. 3. Severe aortic stenosis. 4. History of stroke. 5. History of prostate cancer with metastasis. PLAN: 1. Spontaneous breathing trial and extubate. 2. Decrease IV fluids given his history of aortic stenosis. 3. Keep an eye on his H and H and transfuse as needed. Job ID: [id number]
[2020-03-04 15:52] LABS: Hemoglobin 7.8 g/dL (14.0-18.0)
--- NOTE | 2020-03-04 17:17 | PRG ---
DATE OF SERVICE: 03/04/2020 SUBJECTIVE: This is an 84-year-old male, who had a syncopal episode at home and had a laceration and a tear on the upper lip. He was hypotensive on admission. He was intubated and was admitted to ICU over the weekend. He had initially EGD done by me on Thursday night, which revealed 2 ulcers in the duodenal bulb, cauterized. He had large amount of blood clots in the back of throat, esophagus, and stomach. I did not see any fresh bleeding. He underwent repeat EGD and had multiple clots removed. I did not see any active bleeding, but he had large amount of clots, which has been evacuated. He has done well overnight. He has had 1 stool last night, but since that time, he has no stool. He is also on Levophed. OBJECTIVE: VITAL SIGNS: Stable. He is not tachycardic anymore. His pulse is 80, blood pressure is 110/70. CARDIOVASCULAR: Normal heart sounds. LUNGS: Clear to auscultation. ABDOMEN: Soft. No organomegaly. No tenderness. No masses. LABORATORY DATA: From today shows hemoglobin to be around 7.5, hematocrit 21.2, MCV is 95.2, platelet count 167,000. RECOMMENDATIONS: 1. Continue PPI. 2. Plans are being made to extubate the patient today. After extubation, we will try him on a clear liquid diet. 3. Serial H and H. Job ID: [id number]
--- NOTE | 2020-03-04 17:32 | OP ---
DATE OF PROCEDURE: 03/03/2020 PROCEDURE PERFORMED: Esophagogastroduodenoscopy. PREOPERATIVE DIAGNOSES: Gastrointestinal bleeding. The patient underwent esophagogastroduodenoscopy yesterday with cauterization of the ulcer in the duodenal bulb. The patient had large amount of blood clots in the stomach and also esophagus and the exam was incomplete. The patient underwent second look esophagogastroduodenoscopy. POSTOPERATIVE DIAGNOSES: Gastrointestinal bleeding. The patient underwent esophagogastroduodenoscopy yesterday with cauterization of the ulcer in the duodenal bulb. The patient had large amount of blood clots in the stomach and also esophagus and the exam was incomplete. The patient underwent second look esophagogastroduodenoscopy. FINDINGS: 1. As above. Also in the duodenum identified both ulcers appears to show clean base and no bleeding seen. 2. Large amount of blood clots and blood in the proximal stomach, fundus and cardia. No arterial pumper or any ulcer disease. The exam was very long because he had so many blood clots in the stomach. Multiple passes were made to empty the stomach as much as possible. At the end of the procedure, I do not see any active bleeding, although he has some blood clots left in the fundus and cardia. Overall, the quality of exam was good. DESCRIPTION OF PROCEDURE: The patient was on the ventilator. The patient was given sedation by Anesthesia Department. The patient was turned on his left lateral position and a bite block was placed. A Pentax videogastroscope under direct vision passed down the oropharynx. Just like last time, there was large amount of blood clots in the posterior pharynx. However, I was able to look at the esophagus very well. . The GE junction showed no Gisela-Salgado tear or hiatus hernia. The patient had large amount of blood clots in the proximal esophagus, the fundus, and cardia. He also had some heme staining of the gastric mucosa in lower part. Water was irrigated and washed out. The lower and upper part of gastric body, gastric antrum, incisura, no pathology. The duodenal bulb, descending duodenum, no bleeding seen. The ulcers last night appears to be showing no residual bleeding. The scope was withdrawn back to the stomach. Water was irrigated extensively and tried to wash out. I had to take the scope back and forth almost 20 times to remove all the clots. At the end of the procedure, most of blood clots were cleared out of the fundus and cardia. There was still a small amount of blood clots, but I did not see any bleeding artery vessel or any ulcer seen. The stomach decompressed and scope removed. RECOMMENDATION: 1. Serial H and H. 2. IV PPI. 3. Transfuse p.r.n. Job ID: [id number]
--- NOTE | 2020-03-04 19:45 | PDOC.HOSPP ---
- Subjective Encounter Date: 03/04/20 Encounter Time: 10:45 Subjective: Patient seen and examined for GI bleeding with respiratory failure. Off pressors. Extubated this morning. Feels generally weak and fatigue. Denies any hematemesis or melena. No chest pain or shortness of breath reported. - Objective Vital Signs & Weight: Vital Signs (12 hours) Temp Pulse Pulse Pulse Resp BP BP 03/04/20 16:00 99.2 F 03/04/20 12:00 98.6 F 03/04/20 10:50 16 03/04/20 10:01 93 18 03/04/20 10:00 14 03/04/20 09:11 83 87 107/57 L 113/61 03/04/20 08:11 77 03/04/20 08:00 98.9 F 20 Pulse Ox Pulse Ox Pulse Ox 03/04/20 16:00 03/04/20 12:00 100 03/04/20 10:50 03/04/20 10:01 100 03/04/20 10:00 03/04/20 09:11 100 100 03/04/20 08:11 03/04/20 08:00 100 Weight Admit Weight 218 lb 7.649 oz Weight 218 lb 7.649 oz Most Recent Monitor Data Heart Rate from ECG 94 NIBP 124/60 NIBP BP-Mean 79 Respiration from ECG 19 SpO2 100 I&O: 03/03/20 03/04/20 03/05/20 06:59 06:59 06:59 Intake Total 4399.0 3503.9 867.5 Output Total 887 2185 795 Balance 3512.0 1318.9 72.5 Result Diagrams: 03/04/20 15:35 03/04/20 04:20 Additional Labs: Abnormal Lab Results - Last 48 hrs 03/02/20 14:31: Crossmatch See Detail 03/02/20 21:14: Hgb 8.4 L, Hct 24.7 L 03/03/20 03:05: Chloride 110 H, Anion Gap 9 L, BUN 41 H, Calcium 6.3 L, Serum Total Protein 3.8 L, Albumin 2.1 L, Globulin 1.7 L 03/03/20 03:05: WBC 27.5 H, RBC 2.46 L, Hgb 8.4 L, Hct 23.3 L, MCH 34.1 H, MCHC 36.1 H, RDW 14.9 H, Band Neuts % (Manual) 14 H, Lymphocytes % (Manual) 9 L, Myelocytes % 7 H, Nucleated RBCs # (Man) 4 H 03/03/20 07:11: Bicarbonate Actual 18.4 L, ABG pCO2 29.4 L, ABG pO2 102.0 H, ABG O2 Content 13.1 L, ABG Base Excess -5.2 L, ABG Hematocrit 28.0 L, ABG Hemoglobin 9.5 L, A-a O2 Gradient 217.750 H, Sodium 133 L, Ionized Calcium 0.98 L, Chloride 111 H 03/03/20 11:14: Hgb 7.7 L, Hct 22.4 L 03/03/20 15:30: WBC 27.4 H, RBC 2.22 L, Hgb 7.5 L, Hct 21.3 L, MCH 33.8 H, RDW 14.8 H, Band Neuts % (Manual) 16 H, Lymphocytes % (Manual) 7 L, Myelocytes % 2 H, Nucleated RBCs # (Man) 4 H, Polychromasia MODERATE = 3-4 cells H, Anisocytosis MODERATE=16-30 cells H 03/03/20 22:15: Hgb 6.6 L, Hct 19.0 L 03/04/20 04:20: Chloride 112 H, Carbon Dioxide 22 L, Anion Gap 9 L, BUN 30 H, Creatinine 0.62 L, Calcium 6.1 L, Serum Total Protein 3.8 L, Albumin 2.0 L, Globulin 1.8 L, Albumin/Globulin Ratio 1.1 L 03/04/20 04:20: WBC 20.6 H, RBC 2.23 L, Hgb 7.5 L, Hct 21.2 L, MCH 33.4 H, Lymphocytes % (Manual) 10 L, Myelocytes % 5 H, Nucleated RBCs # (Man) 1 H 03/04/20 04:20: Phosphorus 1.5 L 03/04/20 07:29: Bicarbonate Actual 19.8 L, ABG pH 7.47 H, ABG pCO2 28.0 L, ABG pO2 111.6 H, ABG O2 Content 13.7 L, ABG Base Excess -3.0 L, ABG Hematocrit 29.0 L, ABG Hemoglobin 9.9 L, A-a O2 Gradient 138.600 H, Potassium 3.62 L, Ionized Calcium 1.00 L, Chloride 112 H 03/04/20 15:35: Hgb 7.8 L, Hct 22.1 L Microbiology - Entire Visit 03/02/20 07:53 Venous blood - Right Arm Blood Culture - Preliminary NO GROWTH AT 48 HOURS 03/02/20 07:17 Venous blood - Right Arm Blood Culture - Preliminary NO GROWTH AT 48 HOURS 03/02/20 07:08 Stool - Pending Stool Occult Blood ([facility]) - Final Radiology Reviewed by me: Yes (Chest x-rayno new infiltrate) EKG Reviewed by me: Yes (Sinus rhythm on telemetry) Hospitalist ROS - Review of Systems Respiratory: denies: cough, dry, shortness of breath, hemoptysis, SOB with excertion, pleuritic pain, sputum, wheezing, other Cardiovascular: denies: chest pain, palpitations, orthopnea, paroxysmal noc. dys pnea, edema, light headedness, other - Medication Medications: Active Medications Generic Name Dose Route Start Last Admin Trade Name Freq PRN Reason Stop Dose Admin Bacitracin 1 pk 03/02/20 19:47 03/03/20 03:42 Bacitracin 1 Pk TOP 1 pk PRN PRN Administration TO SKIN OF UPPER LIP Chlorhexidine Gluconate 15 ml 03/02/20 21:00 03/04/20 09:11 Chlorhexidine Gluconate 15 Ml Udcup SSP 15 ml BID EDIS Administration Cefepime HCl 2 gm/ Sodium 100 mls @ 200 mls/hr 03/02/20 21:00 03/04/20 09:10 Chloride IVPB 100 mls Q12HR EDIS Administration Norepinephrine Bitartrate 8 mg 250 mls @ 0 mls/hr 03/02/20 12:45 03/03/20 17:14 / Dextrose/Water IVPB 250 mls INF EDIS Administration Protocol Titrate Dextrose/Sodium Chloride 1,000 mls @ 60 mls/hr 03/04/20 10:02 03/04/20 10:23 D5 0.9% Ns IV 1,000 mls .[id number] EDIS Administration Pantoprazole Sodium 40 mg 03/02/20 21:00 03/04/20 09:11 Pantoprazole 40 Mg Vial IVP 40 mg Q12HR EDIS Administration Propofol 1,000 mg 03/02/20 12:45 03/04/20 09:41 Propofol 1,000 Mg/100 Ml Vial IV 04/01/20 12:45 1,000 mg INF PRN Administration TO ACHIEVE GOAL RASS Protocol - Exam General Appearance: ill appearing Neck: supple, no JVD Heart: RRR, no gallops, no rubs, normal peripheral pulses Respiratory: no wheezes, no rales, no ronchi, normal chest expansion Gastrointestinal: non-tender, non-distended, normal bowel sounds, no guarding, no rigidity Extremities: no cyanosis, no clubbing, no edema Extremities - other findings: No calf tenderness Skin: normal turgor Neurological: no new deficit Musculoskeletal: generalized weakness Psychiatric: normal affect, A&O x 3 Hosp A/P - Plan DVT proph w/SCDs Patient is a 84-year-old male with metastatic prostate cancer, aortic stenosis, hypertension with recent CVA on aspirin presented to the emergency room on 03/02 with lower GI bleeding and syncope/fall. He fell forward lacerating his upper lip on the shower.. His blood pressure was 84 systolic by EMS. He also felt lightheaded and dizzy. His EKG showed sinus tachycardia with PVCs. CT scan of the head and neck was negative. Due to persistent hypotension with ongoing GI bleeding he received 3 units of PRBC with 4 units of FFP in the emergency room. He was started on Levophed drip. Due to hemodynamic instability he was intubated and placed on mechanical ventilation. Please refer to the history and physical for further details. The patient was admitted to the intensive care unit with a diagnosis of hemorrhagic shock due to GI bleeding. He underwent EGD by Dr. Mahmood on 03/02 that showed large amount of blood clots starting from the posterior pharynx running the entire length of the esophagus into the proximal stomach and fundus. He also had 2 ulcers in the duodenal bulb1 ulcer measured approximately 2 cm with erythematous base and under the ulcer measured approximately 1 cm. Descending duodenum had black clots with no active bleeding. Patient had a repeat EGD done on 03/03. He received total of 6 units of PRBC this hospital stay. He was extubated on 03/04. Pressors were discontinued on 03/04. Patient was also seen by oral maxillofacial surgeon for lip laceration which was repaired. CT of the facial bones was negative for evidence for facial fractures. Assessment: Acute hemorrhagic shock due to GI bleeding requiring pressors Acute blood loss anemia acute hypoxic respiratory failure requiring mechanical ventilation Syncope due to severe hypotension Hypokalemia/hypomagnesemia/hypophosphatemia Lactic acidosis due to hypotension Lip laceration due to mechanical fall from hypotension Leukocytosis with left shiftsuspected sepsis of unclear etiologyPOA History of hypertension History of metastatic prostate cancer Recent CVA in the left parietal/temporal regionpatient was discharged on 02/22 on aspirin History of severe aortic stenosis History of tachyarrhythmiapatient has a event monitor (follows Dr. Mclaughlin) Plan: Continue IV PPI. IV fluids reduced to 60 mL/h. Patient is currently off pressors. Continue close monitoring. Physical therapy. Antiplatelets on hold due to GI bleeding. Monitor H&H every 8 hourly per GI. Continue other medications as above. A.m. labs. Consult counter caser for inpatient rehab evaluation.
[2020-03-05 04:28] LABS: ALT (SGPT) 15 U/L (8-55); AST (SGOT) 20 U/L (5-34); Albumin 2.1 g/dL (3.4-4.8); Alkaline Phosphatase 43 U/L (40-110); Anion Gap 10 mmol/L (10-20); BUN (Urea Nitrogen) 20 mg/dL (8.4-25.7); Bilirubin, Total 0.5 mg/dL (0.2-1.2); Calc. Creatinine Clearance 135 mL/min (70-130); Calcium 6.2 mg/dL (7.8-10.44); Carbon Dioxide 23 mmol/L (23-31); Chloride 114 mmol/L (98-107); Globulin 1.9 g/dL (2.4-3.5); Glucose 107 mg/dL (83-110); Magnesium 2.3 mg/dL (1.6-2.6); Potassium 3.4 mmol/L (3.5-5.1); Sodium 144 mmol/L (136-145)
[2020-03-05 04:56] LABS: Anisocytosis SLIGHT = 6-15 cells (100X) (0-5/hpf); Band 14 % (5-11); Hemoglobin 7.4 g/dL (14.0-18.0); Lymphocytes 6 % (21-51); MDiff Complete? YES; Mean Corpuscular HGB CONC 35.1 g/dL (32.0-36.0); Mean Corpuscular Hemoglobin 33.1 pg (27.0-31.0); Mean Corpuscular Volume 94.3 fL (78.0-98.0); Mean Platelet Volume 7.6 fL (7.4-10.4); Metamyelocyte 3 % (0-0); Monocytes 4 % (0-10); Myelocyte 10 % (0-0); Neutrophil 63 % (42-75); Nucleated RBC 5 % (0); Platelet Count 182 thou/uL (130-400); Polychromasia MODERATE = 3-4 cells (100X) (0-2/hpf); RBC Distribution Width 14.7 % (11.5-14.5); Red Blood Cell (RBC) Count 2.25 mill/uL (4.70-6.10); White Blood Cell (WBC) Count 15.2 thou/uL (4.8-10.8)
--- NOTE | 2020-03-05 06:35 | PRG ---
DATE OF SERVICE: 03/05/2020 SUBJECTIVE: Patient was extubated yesterday. He is doing well. He has no acute complaints other than thirst. OBJECTIVE: VITAL SIGNS: Temperature 97.6, pulse 89, blood pressure 139/60, O2 saturation 100%. 24-hour intake 967, output 1325. HEENT: Unremarkable except for the lip laceration, which has been sewn. NECK: No JVD. LUNGS: Clear anteriorly. CARDIAC: S1, S2. Regular. ABDOMEN: Soft. EXTREMITIES: No edema. LABORATORY DATA: White blood cell count 15.2, hematocrit 21.2, platelet count 182. Sodium 144, potassium 3.4, chloride 114, CO2 of 23, BUN 20, creatinine 0.5, glucose 107. ASSESSMENT: 1. Anemia due to blood loss. 2. Status post acute respiratory failure requiring mechanical ventilation. 3. Status post lip avulsion and subsequent repair. 4. Severe aortic stenosis. 5. History of prostate cancer metastasis. PLAN: He can be transferred out to telemetry. His blood counts need to be continually monitored. He needs Speech Therapy evaluation to make sure his swallowing is clear. Job ID: [id number]
--- NOTE | 2020-03-05 07:21 | RAD ---
EXAM: Single view of the chest HISTORY: Altered mental status and syncope COMPARISON: 02/21/2020 FINDINGS: Single view of the chest shows a normal sized cardiomediastinal silhouette. A left subclav scar central venous catheter seen with its tip in the superior vena cava. No pneumothorax is seen. Diffuse stable increased interstitial markings are present. There appear to be calcified granulomas p roject over the right chest. Scattered blastic osseous metastases are seen. IMPRESSION: 1. Status post line placement without evidence of complication 2. Osseous metastatic disease
[2020-03-05 08:17] LABS: Hemoglobin 7.5 g/dL (14.0-18.0)
[2020-03-05] MEDS: Chlorhexidine Gluconate 15 ML UDCUP SSP SCH ×2 (09:02→22:53)
[2020-03-05] MEDS: Pantoprazole 40 MG VIAL IVP SCH ×2 (09:03→22:52)
[2020-03-05] MEDS: Dextrose 5 % And 0.9 % NaCl 1,000 ML IV SCH (09:03)
[2020-03-05] MEDS: Cefepime 2 GM in Sodium Chloride 0.9% 100 ML IVPB SCH ×2 (09:08→22:51)
[2020-03-05] MEDS: Potassium Chloride 20 MEQ in Premix Bag 1 BAG IVPB SCH ×2 (09:08→10:07)
--- NOTE | 2020-03-05 21:57 | PDOC.HOSPP ---
- Subjective Encounter Date: 03/05/20 Encounter Time: 10:00 Subjective: Patient seen and examined for GI bleeding with hypotension. No overnight events. No chest pain, palpitations or melena. - Objective Vital Signs & Weight: Vital Signs (12 hours) Temp Pulse Pulse Pulse Resp BP BP 03/05/20 20:00 97.2 F L 92 18 03/05/20 15:58 98.8 F 90 20 03/05/20 10:50 98.5 F 86 24 H 03/05/20 10:21 90 90 130/73 138/69 BP Pulse Ox Pulse Ox Pulse Ox 03/05/20 20:00 134/83 95 03/05/20 15:58 169/80 H 97 03/05/20 10:50 126/76 100 03/05/20 10:21 100 100 Weight Admit Weight 218 lb 7.649 oz Weight 218 lb 7.649 oz Most Recent Monitor Data Heart Rate from ECG 91 NIBP 143/71 NIBP BP-Mean 96 Respiration from ECG 23 SpO2 100 I&O: 03/04/20 03/05/20 03/06/20 06:59 06:59 06:59 Intake Total 3503.9 967.5 274 Output Total 2185 1325 900 Balance 1318.9 -357.5 -626 Result Diagrams: 03/05/20 08:00 03/05/20 12:01 Additional Labs: Abnormal Lab Results - Last 48 hrs 03/02/20 14:31: Crossmatch See Detail 03/03/20 22:15: Hgb 6.6 L, Hct 19.0 L 03/04/20 04:20: Chloride 112 H, Carbon Dioxide 22 L, Anion Gap 9 L, BUN 30 H, C reatinine 0.62 L, Calcium 6.1 L, Serum Total Protein 3.8 L, Albumin 2.0 L, Globulin 1.8 L, Albumin/Globulin Ratio 1.1 L 03/04/20 04:20: WBC 20.6 H, RBC 2.23 L, Hgb 7.5 L, Hct 21.2 L, MCH 33.4 H, Lymphocytes % (Manual) 10 L, Myelocytes % 5 H, Nucleated RBCs # (Man) 1 H 03/04/20 04:20: Phosphorus 1.5 L 03/04/20 07:29: Bicarbonate Actual 19.8 L, ABG pH 7.47 H, ABG pCO2 28.0 L, ABG pO2 111.6 H, ABG O2 Content 13.7 L, ABG Base Excess -3.0 L, ABG Hematocrit 29.0 L, ABG Hemoglobin 9.9 L, A-a O2 Gradient 138.600 H, Potassium 3.62 L, Ionized Calcium 1.00 L, Chloride 112 H 03/04/20 15:35: Hgb 7.8 L, Hct 22.1 L 03/05/20 03:45: Potassium 3.4 L, Chloride 114 H, Creatinine 0.56 L, Calcium 6.2 L, Serum Total Protein 4.0 L, Albumin 2.1 L, Globulin 1.9 L, Albumin/Globulin Ratio 1.1 L 03/05/20 03:45: WBC 15.2 H, RBC 2.25 L, Hgb 7.4 L, Hct 21.2 L, MCH 33.1 H, RDW 14.7 H, Band Neuts % (Manual) 14 H, Lymphocytes % (Manual) 6 L, Myelocytes % 10 H, Nucleated RBCs # (Man) 5 H, Polychromasia MODERATE = 3-4 cells H 03/05/20 08:00: Hgb 7.5 L, Hct 21.5 L Microbiology - Entire Visit 03/02/20 07:53 Venous blood - Right Arm Blood Culture - Preliminary NO GROWTH AT 48 HOURS 03/02/20 07:17 Venous blood - Right Arm Blood Culture - Preliminary NO GROWTH AT 48 HOURS 03/02/20 07:08 Stool - Pending Stool Occult Blood ([facility]) - Final EKG Reviewed by me: Yes (Sinus rhythm on telemetry) Hospitalist ROS - Review of Systems Respiratory: denies: cough, dry, shortness of breath, hemoptysis, SOB with excertion, pleuritic pain, sputum, wheezing, other Cardiovascular: denies: chest pain, palpitations, orthopnea, paroxysmal noc. dyspnea, edema, light headedness, other - Medication Medications: Active Medications Generic Name Dose Route Start Last Admin Trade Name Freq PRN Reason Stop Dose Admin Bacitracin 1 pk 03/02/20 19:47 03/03/20 03:42 Bacitracin 1 Pk TOP 1 pk PRN PRN Administration TO SKIN OF UPPER LIP Chlorhexidine Gluconate 15 ml 03/02/20 21:00 12/21/20 09:02 Chlorhexidine Gluconate 15 Ml Udcup SSP 15 ml BID EDIS Administration Cefepime HCl 2 gm/ Sodium 100 mls @ 200 mls/hr 03/02/20 21:00 03/05/20 09:08 Chloride IVPB 100 mls Q12HR EDIS Administration Pantoprazole Sodium 40 mg 03/02/20 21:00 03/05/20 09:03 Pantoprazole 40 Mg Vial IVP 40 mg Q12HR EDIS Administration - Exam General Appearance: ill appearing Neck: supple, no JVD Heart: RRR, no gallops Respiratory: no wheezes, no ronchi Gastrointestinal: soft, non-tender, non-distended, normal bowel sounds Extremities: no cyanosis, no clubbing Hosp A/P - Plan DVT proph w/SCDs Patient is a 84-year-old male with metastatic prostate cancer, aortic stenosis, hypertension with recent CVA on aspirin presented to the emergency room on 03/02 with lower GI bleeding and syncope/fall. He fell forward lacerating his upper lip on the shower.. His blood pressure was 84 systolic by EMS. He also felt lightheaded and dizzy. His EKG showed sinus tachycardia with PVCs. CT scan of the head and neck was negative. Due to persistent hypotension with ongoing GI bleeding he received 3 units of PRBC with 4 units of FFP in the emergency room. He was started on Levophed drip. Due to hemodynamic instability he was intubated and placed on mechanical ventilation. Please refer to the history and physical for further details. The patient was admitted to the intensive care unit with a diagnosis of hemorrhagic shock due to GI bleeding. He underwent EGD by Dr. Mahmood on 03/02 that showed large amount of blood clots starting from the posterior pharynx running the entire length of the esophagus into the proximal stomach and fundus. He also had 2 ulcers in the duodenal bulb1 ulcer measured approximately 2 cm with erythematous base and under the ulcer measured approximately 1 cm. Descending duodenum had black clots with no active bleeding. Patient had a repeat EGD done on 03/03. He received total of 6 units of PRBC this [facility]. He was extubated on 03/04. Pressors were discontinued on 03/04. He was transferred to telemetry unit on 03/05. Patient was also seen by oral maxillofacial surgeon for lip laceration which was repaired. CT of the facial bones was negative for evidence for facial fractures. Assessment: Acute hemorrhagic shock due to GI bleeding requiring pressors Acute blood loss anemia acute hypoxic respiratory failure requiring mechanical ventilation Syncope due to severe hypotension Hypokalemia/hypomagnesemia/hypophosphatemia Lactic acidosis due to hypotension Lip laceration due to mechanical fall from hypotension Leukocytosis with left shiftsuspected sepsis of unclear etiologyPOA History of hypertension History of metastatic prostate cancer Recent CVA in the left parietal/temporal regionpatient was discharged on 02/22 on aspirin History of severe aortic stenosis History of tachyarrhythmiapatient has a event monitor (follows Dr. Mclaughlin) Plan: Discontinue IV fluid later today if tolerating po. Continue empiric antibiotics. Continue IV PPIs. DC Harper catheter in a.m. A.m. labs. Continue to liquid diet. Inpatient rehab placement in probably 2 days if okay with consultants.
--- NOTE | 2020-03-05 23:52 | CON ---
DATE OF CONSULTATION: HISTORY OF PRESENT ILLNESS: An 84-year-old male presenting to the emergency department after sustaining a fall while in the shower. The patient sustained a facial laceration. Oral Maxillofacial Surgery was consulted to repair. The patient is currently under the care of a hospitalist as an inpatient for gastrointestinal ulcerations and chronic anemia. During evaluation, the patient was already in the operating room, undergoing a gastroesophageal scope. Once GI was completed with their procedure, Oral Maxillofacial Surgery evaluated the patient. Upon exam, noted a 3.5 to 4 cm through and through laceration of the upper lip extending from the left philtrum of the skin to midline down through vermilion through the mid of the upper lip into the oral cavity. Tooth #10 noted to have a small fracture Alvarez class I along the incisal edge. Minimal mobility, nondisplaced. No maxillary or mandibular mobility was appreciated. No stepping of the occlusion. Occlusion noted to be stable and intact. No other oral or facial injuries appreciated. CT maxillofacial noncontrast revealed no facial fractures. No dentoalveolar fractures. IMPRESSION: Complex through and through laceration of the upper lip extending past the vermilion border onto skin. Concussion of tooth #10. PLAN: Due to patient being intubated and under sedative medication, informed consent was discussed with additional medical staff. Using Betadine prep, prepped area of the laceration. Sterile drapes were applied using 1% lidocaine with 100,000 epinephrine, used 5 mL, and injected locally around the site. Next, using saline irrigation, copious irrigation, debridement of the wound was completed. The site was noted to be hemostatic. Reapproximated the complex laceration via layered approach using 5-0 deep Vicryl, 4-0 deep Vicryl, and 5-0 Prolene sutures on skin and 4-0 chromic gut sutures on the mucosa. Lip was closed from inside out in a layered fashion. At this point, procedure was deemed complete. A layer of bacitracin was applied to the left lip laceration. The patient remained intubated and was transferred to the ICU with spontaneous respirations intact. Job ID: [id number]
[2020-03-06 05:08] LABS: ALT (SGPT) 14 U/L (8-55); AST (SGOT) 23 U/L (5-34); Albumin 2.2 g/dL (3.4-4.8); Alkaline Phosphatase 45 U/L (40-110); Anion Gap 8 mmol/L (10-20); BUN (Urea Nitrogen) 15 mg/dL (8.4-25.7); Bilirubin, Total 0.5 mg/dL (0.2-1.2); Calc. Creatinine Clearance 133 mL/min (70-130); Calcium 6.5 mg/dL (7.8-10.44); Carbon Dioxide 25 mmol/L (23-31); Chloride 108 mmol/L (98-107); Globulin 2.1 g/dL (2.4-3.5); Glucose 101 mg/dL (83-110); Magnesium 2.1 mg/dL (1.6-2.6); Potassium 3.4 mmol/L (3.5-5.1); Protein, Total 4.3 g/dL (5.8-8.1); Sodium 138 mmol/L (136-145)
[2020-03-06 05:09] LABS: Phosphorus 1.2 mg/dL (2.3-4.7)
[2020-03-06] MEDS ORDERED: Potassium Phosphate 22 MMOL in Sodium Chloride 0.9% 250 ML 250 ML IVPB SCH (05:30)
[2020-03-06 06:04] LABS: Band 9 % (5-11); Hemoglobin 7.4 g/dL (14.0-18.0); Lymphocytes 7 % (21-51); MDiff Complete? YES; Mean Corpuscular HGB CONC 34.7 g/dL (32.0-36.0); Mean Corpuscular Volume 95.3 fL (78.0-98.0); Mean Platelet Volume 7.6 fL (7.4-10.4); Monocytes 4 % (0-10); Myelocyte 4 % (0-0); Neutrophil 74 % (42-75); Platelet Count 221 thou/uL (130-400); RBC Distribution Width 14.7 % (11.5-14.5); Reactive Lymphocytes 2 % (0-10); Red Blood Cell (RBC) Count 2.25 mill/uL (4.70-6.10); White Blood Cell (WBC) Count 13.1 thou/uL (4.8-10.8)
--- NOTE | 2020-03-06 06:06 | PRG ---
DATE OF SERVICE: 03/05/2020 SUBJECTIVE: This is an 84-year-old male brought to the ER by EMS on Thursday after he episode in the house and he lip in the middle. He was intubated and ventilated yesterday. He had 2 EGDs done, one on Thursday, one on Thursday. He had 2 ulcers in the duodenum, which were cauterized. A large amount of blood clots in the esophagus, back of throat, and also stomach. Repeat EGD on 03/03, without any active bleeding, but a large amount of blood clots evacuated. He had done well and was extubated yesterday. He is transferred to the stroke unit today. He is awake, alert, in . Apparently, it appears he has had a stroke admission. OBJECTIVE: GENERAL: He is awake, alert, and oriented. VITAL SIGNS: Stable. HEENT: Conjunctivae are clear. The suturing of the lip appears healthy. NECK: Supple. CARDIOVASCULAR: LUNGS: . LABORATORY DATA: Remains stable around hemoglobin 7.5, hematocrit 29.2. Lytes . IMPRESSION: 1. Acute syncopal episode with resulting fall and laceration and deep cut of the upper lip, status post suturing. 2. Gastrointestinal bleeding, status post esophagogastroduodenoscopy and BICAP therapy. 3. Anemia due to blood loss. 4. Metastatic prostate cancer. 5. . RECOMMENDATION: 1. Lab evaluation pathology report. The patient diet. 2. Follow up labs and transfuse. Job ID: [id number]
[2020-03-06] MEDS: Cefepime 2 GM in Sodium Chloride 0.9% 100 ML IVPB SCH ×2 (10:32→20:22)
[2020-03-06] MEDS: Pantoprazole 40 MG VIAL IVP SCH ×2 (10:33→20:23)
[2020-03-06] MEDS: Chlorhexidine Gluconate 15 ML UDCUP SSP SCH ×2 (10:33→20:23)
[2020-03-06] MEDS: Calcium Carbonate 600 MG + Vit D TAB PO SCH (17:25)
--- NOTE | 2020-03-06 20:08 | PDOC.HOSPP ---
- Subjective Encounter Date: 03/06/20 Encounter Time: 11:00 Subjective: Patient seen and examined for GI bleeding with hypotension. No new episodes of GI bleeding. Mild cough. Denies any chest pain, shortness of breath or palpitations. - Objective Vital Signs & Weight: Vital Signs (12 hours) Temp Pulse Pulse Pulse Resp BP BP 03/06/20 19:59 98.5 F 85 20 03/06/20 15:12 98.4 F 94 20 03/06/20 11:16 99 F 87 20 03/06/20 11:11 86 140/76 03/06/20 09:09 89 86 144/80 H 114/71 BP Pulse Ox Pulse Ox 03/06/20 19:59 139/71 94 L 03/06/20 15:12 136/68 95 03/06/20 11:16 140/76 94 L 03/06/20 11:11 94 L 03/06/20 09:09 Weight Admit Weight 218 lb 7.649 oz Weight 218 lb 7.649 oz Most Recent Monitor Data Heart Rate from ECG 91 NIBP 143/71 NIBP BP-Mean 96 Respiration from ECG 23 SpO2 100 I&O: 03/05/20 03/06/20 03/07/20 06:59 06:59 06:59 Intake Total 967.5 974 1600 Output Total 1325 2100 Balance -357.5 -1126 1600 Result Diagrams: 03/06/20 04:32 03/06/20 04:32 Additional Labs: Accuchecks 03/06/20 11:16 POC Glucose 104 H Abnormal Lab Results - Last 48 hrs 03/02/20 14:31: Crossmatch See Detail 03/05/20 03:45: Potassium 3.4 L, Chloride 114 H, Creatinine 0.56 L, Calcium 6.2 L, Serum Total Protein 4.0 L, Albumin 2.1 L, Globulin 1.9 L, Albumin/Globulin Ratio 1.1 L 03/05/20 03:45: WBC 15.2 H, RBC 2.25 L, Hgb 7.4 L, Hct 21.2 L, MCH 33.1 H, RDW 14.7 H, Band Neuts % (Manual) 14 H, Lymphocytes % (Manual) 6 L, Myelocytes % 10 H, Nucleated RBCs # (Man) 5 H, Polychromasia MODERATE = 3-4 cells H 03/05/20 08:00: Hgb 7.5 L, Hct 21.5 L 03/06/20 04:32: Potassium 3.4 L, Chloride 108 H, Anion Gap 8 L, Creatinine 0.57 L, Calcium 6.5 L, Serum Total Protein 4.3 L, Albumin 2.2 L, Globulin 2.1 L, Albumin/Globulin Ratio 1.0 L 03/06/20 04:32: WBC 13.1 H, RBC 2.25 L, Hgb 7.4 L, Hct 21.4 L, MCH 33.0 H, RDW 14.7 H, Lymphocytes % (Manual) 7 L, Myelocytes % 4 H 03/06/20 04:32: Phosphorus 1.2 L Microbiology - Entire Visit 03/02/20 07:53 Venous blood - Right Arm Blood Culture - Preliminary NO GROWTH AT 48 HOURS 03/02/20 07:17 Venous blood - Right Arm Blood Culture - Preliminary NO GROWTH AT 48 HOURS 03/02/20 07:08 Stool - Pending Stool Occult Blood ([facility]) - Final EKG Reviewed by me: Yes (Sinus rhythm on telemetry) Hospitalist ROS - Review of Systems Respiratory: denies: cough, dry, shortness of breath, hemoptysis, SOB with excertion, pleuritic pain, sputum, wheezing, other Cardiovascular: denies: chest pain, palpitations, orthopnea, paroxysmal noc. dyspnea, edema, light headedness, other - Medication Medications: Active Medications Generic Name Dose Route Start Last Admin Trade Name Freq PRN Reason Stop Dose Admin Bacitracin 1 pk 03/02/20 19:47 03/03/20 03:42 Bacitracin 1 Pk TOP 1 pk PRN PRN Administration TO SKIN OF UPPER LIP Calcium/Vitamin D 1 tab 03/06/20 17:00 03/06/20 17:25 Calcium Carbonate 600 Mg + Vit D Tab PO 1 tab BID-WM EDSI Administration Chlorhexidine Gluconate 15 ml 03/02/20 21:00 03/06/20 10:33 Chlorhexidine Gluconate 15 Ml Udcup SSP 15 ml BID EDIS Administration Cefepime HCl 2 gm/ Sodium 100 mls @ 200 mls/hr 03/02/20 21:00 03/06/20 10:32 Chloride IVPB 100 mls Q12HR EDIS Administration Pantoprazole Sodium 40 mg 03/02/20 21:00 03/06/20 10:33 Pantoprazole 40 Mg Vial IVP 40 mg Q12HR EDIS Administration - Exam General Appearance: NAD Heart: RRR, no gallops Respiratory: no wheezes, normal chest expansion, no tachypnea Gastrointestinal: soft, non-distended Extremities: no cyanosis, no clubbing Neurological: no new deficit Hosp A/P - Plan DVT proph w/SCDs Patient is a 84-year-old male with metastatic prostate cancer, aortic stenosis, hypertension with recent CVA on aspirin presented to the emergency room on 03/02 with lower GI bleeding and syncope/fall. He fell forward lacerating his upper lip on the shower.. His blood pressure was 84 systolic by EMS. He also felt lightheaded and dizzy. His EKG showed sinus tachycardia with PVCs. CT scan of the head and neck was negative. Due to persistent hypotension with ongoing GI bleeding he received 3 units of PRBC with 4 units of FFP in the emergency room. He was started on Levophed drip. Due to hemodynamic instability he was intubate d and placed on mechanical ventilation. Please refer to the history and physical for further details. The patient was admitted to the intensive care unit with a diagnosis of hemorrhagic shock due to GI bleeding. He underwent EGD by Dr. Mahmood on 03/02 that showed large amount of blood clots starting from the posterior pharynx running the entire length of the esophagus into the proximal stomach and fundus. He also had 2 ulcers in the duodenal bulb1 ulcer measured approximately 2 cm with erythematous base and under the ulcer measured approximately 1 cm. Descending duodenum had black clots with no active bleeding. Patient had a repeat EGD done on 03/03. He received total of 6 units of PRBC this hospital stay. He was extubated on 03/04. Pressors were discontinued on 03/04. He was transferred to telemetry unit on 03/05. Patient was also seen by oral maxillofacial surgeon for lip laceration which was repaired. CT of the facial bones was negative for evidence for facial fractures. Assessment: Acute hemorrhagic shock due to GI bleeding requiring pressors Acute blood loss anemia acute hypoxic respiratory failure requiring mechanical ventilation Syncope due to severe hypotension Hypokalemia/hypomagnesemia/hypophosphatemia Lactic acidosis due to hypotension Lip laceration due to mechanical fall from hypotension Leukocytosis with left shiftsuspected sepsis of unclear etiologyPOA History of hypertension History of metastatic prostate cancer Recent CVA in the left parietal/temporal regionpatient was discharged on 02/22 on aspirin History of severe aortic stenosis History of tachyarrhythmiapatient has a event monitor (follows Dr. Mclaughlin) Plan: Overall patient doing well. Harper catheter discontinued this morning. Hemog lobin 7.4 this morning. WBC improving without significant left shift. Will replace potassium and phosphorus. Blood cultures negative. No new bleeding reported. Will change antibiotics to p.o. in a.m. continue IV Protonix. Recheck labs in a.m. DC to inpatient rehab once cleared by consultants. Continue therapy.
[2020-03-06] MEDS: Cefdinir 300 MG CAP PO SCH (20:26)
[2020-03-07 05:24] LABS: #Eosinphils 0.1 thou/uL (0.0-0.7); #Lymphocytes 1.4 thou/uL (1.20-3.40); #Monocytes 1.5 thou/uL (0.11-0.59); #Neutrophils 11.3 thou/uL (1.40-6.50); %Eosinophils 0.6 % (0.0-10.0); %Lymphocytes 9.6 % (21.0-51.0); %Monocytes 10.4 % (0.0-10.0); %Neutrophils 79.3 % (42.0-75.0); Hemoglobin 7.8 g/dL (14.0-18.0); Mean Corpuscular HGB CONC 34.8 g/dL (32.0-36.0); Mean Corpuscular Hemoglobin 33.8 pg (27.0-31.0); Mean Platelet Volume 7.8 fL (7.4-10.4); Platelet Count 249 thou/uL (130-400); Red Blood Cell (RBC) Count 2.32 mill/uL (4.70-6.10); White Blood Cell (WBC) Count 14.2 thou/uL (4.8-10.8)
[2020-03-07 05:57] LABS: ALT (SGPT) 20 U/L (8-55); AST (SGOT) 30 U/L (5-34); Albumin 2.3 g/dL (3.4-4.8); Alkaline Phosphatase 49 U/L (40-110); Anion Gap 10 mmol/L (10-20); BUN (Urea Nitrogen) 12 mg/dL (8.4-25.7); Bilirubin, Total 0.6 mg/dL (0.2-1.2); Calc. Creatinine Clearance 133 mL/min (70-130); Calcium 7.1 mg/dL (7.8-10.44); Carbon Dioxide 25 mmol/L (23-31); Chloride 105 mmol/L (98-107); Globulin 2.2 g/dL (2.4-3.5); Glucose 96 mg/dL (83-110); Phosphorus 1.6 mg/dL (2.3-4.7); Potassium 3.3 mmol/L (3.5-5.1); Protein, Total 4.5 g/dL (5.8-8.1); Sodium 137 mmol/L (136-145)
--- NOTE | 2020-03-07 06:05 | PRG ---
DATE OF SERVICE: 03/06/2020 SUBJECTIVE: This is an 84-year-old male, brought to the ER by the EMS on 03/02/2020 after he had a syncopal episode at home and has hit his lip on commode. He had a very deep tear in the upper lip. He underwent suturing. The patient was on ventilator until Thursday. He had 2 EGDs done on Thursday night and also one on Thursday. He had large amount of blood clots in the stomach, which it took almost 3 hours to remove all the clots. Patient had 2 ulcerations in the duodenum, which were cauterized. The patient in the ICU and he is doing well. He is on clear liquid diet. Speech Therapy has seen the patient and advised the patient to manage with only clearly liquids. The patient is awake, alert, and communicative. He states he would like to eat something today. The patient had no abdominal pain, no dyspnea, and no difficulty breathing. PHYSICAL EXAMINATION: VITAL SIGNS: He is afebrile. Temperature is 98.5 degrees Fahrenheit, pulse is 85, blood pressure is 139/71. HEENT: Conjunctivae are clear. Lip, suturing appears healthy. There is no infection. CARDIOVASCULAR: Normal heart sounds. LUNGS: Clear to auscultation. ABDOMEN: Soft. No organomegaly. No tenderness. LAB DATA: Remains the same, but hemoglobin 7.4, hematocrit 21.4, WBC 13,100. His chem-7 is normal. BUN is 15, creatinine is 0.57, calcium is 6.5, albumin 2.2. RECOMMENDATIONS: 1. Consider advancing diet to a regular diet if speech pathologist recommends to advance it. 2. From GI standpoint, nothing acute going on and I will sign off from today. I would recommend continuing the Protonix for the next 3 months as he has 2 large ulcerations in the duodenum. Job ID: [id number]
[2020-03-07] MEDS: Saccharomyces boulardii 250 MG CAP PO SCH (09:57)
[2020-03-07] MEDS: Cefdinir 300 MG CAP PO SCH ×2 (09:57→20:10)
[2020-03-07] MEDS: Calcium Carbonate 600 MG + Vit D TAB PO SCH ×2 (09:57→17:01)
[2020-03-07] MEDS: Pantoprazole 40 MG VIAL IVP SCH (09:57)
[2020-03-07] MEDS: Chlorhexidine Gluconate 15 ML UDCUP SSP SCH ×2 (09:57→20:14)
[2020-03-07] MEDS ORDERED: Potassium Phosphate 30 MMOL in Sodium Chloride 0.9% 500 ML IVPB SCH (12:15)
[2020-03-07 16:35] LABS: Platelet Count 279 thou/uL (130-400)
[2020-03-07] MEDS: predniSONE 5 MG TAB PO SCH (17:01)
--- NOTE | 2020-03-07 21:37 | PDOC.HOSPP ---
- Subjective Encounter Date: 03/07/20 Encounter Time: 16:00 Subjective: Patient seen and examined for GI bleeding causing hypotension. Had another episode of GI bleeding this afternoon. Denies any lightheadedness or dizziness. No chest pain or palpitations. - Objective Vital Signs & Weight: Vital Signs (12 hours) Temp Pulse Resp BP Pulse Ox 03/07/20 19:41 98.3 F 84 20 140/76 94 L 03/07/20 15:20 98.2 F 94 20 151/62 H 94 L 03/07/20 11:32 97.6 F 82 18 126/76 95 Weight Admit Weight 218 lb 7.649 oz Weight 218 lb 7.649 oz Most Recent Monitor Data Heart Rate from ECG 91 NIBP 143/71 NIBP BP-Mean 96 Respiration from ECG 23 SpO2 100 I&O: 03/06/20 03/07/20 03/08/20 06:59 06:59 06:59 Intake Total 974 1600 1220 Output Total 2100 Balance -1126 1600 1220 Result Diagrams: 03/07/20 16:10 03/07/20 04:23 Additional Labs: Abnormal Lab Results - Last 48 hrs 03/02/20 14:31: Crossmatch See Detail 03/06/20 04:32: Potassium 3.4 L, Chloride 108 H, Anion Gap 8 L, Creatinine 0.57 L, Calcium 6.5 L, Serum Total Protein 4.3 L, Albumin 2.2 L, Globulin 2.1 L, Albumin/Globulin Ratio 1.0 L 03/06/20 04:32: WBC 13.1 H, RBC 2.25 L, Hgb 7.4 L, Hct 21.4 L, MCH 33.0 H, RDW 14.7 H, Lymphocytes % (Manual) 7 L, Myelocytes % 4 H 03/06/20 04:32: Phosphorus 1.2 L 03/07/20 04:23: Potassium 3.3 L, Creatinine 0.57 L, Calcium 7.1 L, Phosphorus 1.6 L, Serum Total Protein 4.5 L, Albumin 2.3 L, Globulin 2.2 L, Albumin/Gl obulin Ratio 1.0 L 03/07/20 04:23: WBC 14.2 H, RBC 2.32 L, Hgb 7.8 L, Hct 22.5 L, MCH 33.8 H, RDW 15.0 H, Neutrophils % 79.3 H, Lymphocytes % 9.6 L, Monocytes % 10.4 H, Neutro phils # 11.3 H, Monocytes # 1.5 H 03/07/20 16:10: Hgb 8.0 L, Hct 23.2 L Microbiology - Entire Visit 03/02/20 07:53 Venous blood - Right Arm Blood Culture - Final NO GROWTH IN 5 DAYS 03/02/20 07:17 Venous blood - Right Arm Blood Culture - Final NO GROWTH IN 5 DAYS 03/02/20 07:08 Stool - Pending Stool Occult Blood ([facility]) - Final EKG Reviewed by me: Yes (Sinus rhythm on telemetry) Hospitalist ROS - Review of Systems Respiratory: denies: cough, dry, shortness of breath, hemoptysis, SOB with excertion, pleuritic pain, sputum, wheezing, other Cardiovascular: denies: chest pain, palpitations, orthopnea, paroxysmal noc. dyspnea, edema, light headedness, other - Medication Medications: Active Medications Generic Name Dose Route Start Last Admin Trade Name Freq PRN Reason Stop Dose Admin Bacitracin 1 pk 03/02/20 19:47 03/03/20 03:42 Bacitracin 1 Pk TOP 1 pk PRN PRN Administration TO SKIN OF UPPER LIP Calcium/Vitamin D 1 tab 03/06/20 17:00 03/07/20 17:01 Calcium Carbonate 600 Mg + Vit D Tab PO 1 tab BID-WM EDIS Administration Cefdinir 300 mg 03/06/20 21:00 03/07/20 20:10 Cefdinir 300 Mg Cap PO 300 mg BID EDIS Administration Chlorhexidine Gluconate 15 ml 03/02/20 21:00 03/07/20 20:14 Chlorhexidine Gluconate 15 Ml Udcup SSP 15 ml BID EDIS Administration Pantoprazole Sodium 40 mg 03/07/20 21:00 03/07/20 20:10 Pantoprazole 40 Mg Tab PO 40 mg BID EDIS Administration Prednisone 5 mg 03/07/20 17:00 03/07/20 17:01 Prednisone 5 Mg Tab PO 5 mg BID-WM EDIS Administration Saccharomyces Boulardii 250 mg 03/07/20 09:00 03/07/20 09:57 Saccharomyces Boulardii 250 Mg Cap PO 250 mg DAILY EDIS Administration - Exam General Appearance: ill appearing Neck: supple, no JVD Heart: RRR, no gallops Respiratory: no wheezes, no ronchi Gastrointestinal: soft, non-tender, normal bowel sounds Extremities: no cyanosis Hosp A/P - Plan DVT proph w/SCDs Patient is a 84-year-old male with metastatic prostate cancer, aortic stenosis, hypertension with recent CVA on aspirin presented to the emergency room on 03/02 with lower GI bleeding and syncope/fall. He fell forward lacerating his upper lip on the shower.. His blood pressure was 84 systolic by EMS. He also felt lightheaded and dizzy. His EKG showed sinus tachycardia with PVCs. CT scan of the head and neck was negative. Due to persistent hypotension with ongoing GI bleeding he received 3 units of PRBC with 4 units of FFP in the emergency room. He was started on Levophed drip. Due to hemodynamic instability he was intubated and placed on mechanical ventilation. Please refer to the history and physical for further details. The patient was admitted to the intensive care unit with a diagnosis of hemorrhagic shock due to GI bleeding. He underwent EGD by Dr. Mahmood on 03/02 that showed large amount of blood clots starting from the posterior pharynx running the entire length of the esophagus into the proximal stomach and fundus. He also had 2 ulcers in the duodenal bulb1 ulcer measured approximately 2 cm with erythematous base and under the ulcer measured approximately 1 cm. Descending duodenum had black clots with no active bleeding. Patient had a repeat EGD done on 03/03. He received total of 6 units of PRBC this hospital stay. He was extubated on 03/04. Pressors were discontinued on 03/04. He was transferred to telemetry unit on 03/05. Patient had another episode of GI bleeding on 03/07. Patient was also seen by oral maxillofacial surgeon for lip laceration which was repaired. CT of the facial bones was negative for evidence for facial fractures. Assessment: Acute hemorrhagic shock due to GI bleeding requiring pressors Acute blood loss anemia acute hypoxic respiratory failure requiring mechanical ventilation Syncope due to severe hypotension Hypokalemia/hypomagnesemia/hypophosphatemia Lactic acidosis due to hypotension Lip laceration due to mechanical fall from hypotension Leukocytosis with left shiftsuspected sepsis of unclear etiologyPOA History of hypertension History of metastatic prostate cancer Recent CVA in the left parietal/temporal regionpatient was discharged on 02/22 on aspirin History of severe aortic stenosis History of tachyarrhythmiapatient has a event monitor (follows Dr. Mclaughlin) Plan: Patient had another episode of GI bleeding today. Will monitor H&H. Continue PPIs. We will change PPI to po. Monitor H&H. Transfuse to maintain hemoglobin over 7. Replace phosphorus and potassium. Await placement
[2020-03-08] MEDS: predniSONE 5 MG TAB PO SCH ×2 (08:31→17:15)
[2020-03-08] MEDS: Calcium Carbonate 600 MG + Vit D TAB PO SCH ×2 (08:31→17:15)
[2020-03-08] MEDS: Saccharomyces boulardii 250 MG CAP PO SCH (08:31)
[2020-03-08] MEDS: Cefdinir 300 MG CAP PO SCH ×2 (08:31→21:11)
[2020-03-08] MEDS: Chlorhexidine Gluconate 15 ML UDCUP SSP SCH ×2 (08:34→21:11)
[2020-03-08 12:32] LABS: #Eosinphils 0.1 thou/uL (0.0-0.7); #Lymphocytes 0.9 thou/uL (1.20-3.40); #Monocytes 1.3 thou/uL (0.11-0.59); #Neutrophils 9.6 thou/uL (1.40-6.50); %Basophils 0.2 % (0.0-1.0); %Eosinophils 1.1 % (0.0-10.0); %Lymphocytes 7.9 % (21.0-51.0); %Monocytes 11.1 % (0.0-10.0); %Neutrophils 79.8 % (42.0-75.0); Hemoglobin 8.2 g/dL (14.0-18.0); Mean Corpuscular Hemoglobin 33.2 pg (27.0-31.0); Mean Corpuscular Volume 97.9 fL (78.0-98.0); Mean Platelet Volume 7.5 fL (7.4-10.4); Platelet Count 323 thou/uL (130-400); RBC Distribution Width 16.8 % (11.5-14.5); Red Blood Cell (RBC) Count 2.47 mill/uL (4.70-6.10)
[2020-03-08 12:58] LABS: Anion Gap 14 mmol/L (10-20); BUN (Urea Nitrogen) 10 mg/dL (8.4-25.7); Calc. Creatinine Clearance 118 mL/min (70-130); Calcium 7.7 mg/dL (7.8-10.44); Carbon Dioxide 24 mmol/L (23-31); Chloride 103 mmol/L (98-107); Glucose 132 mg/dL (83-110); Magnesium 1.9 mg/dL (1.6-2.6); Potassium 3.7 mmol/L (3.5-5.1); Sodium 137 mmol/L (136-145)
[2020-03-08 13:19] LABS: Phosphorus 2.6 mg/dL (2.3-4.7)
[2020-03-08] MEDS ORDERED: Magnesium 2 GM/50 ML 2 GM in Premix Bag 1 BAG IVPB SCH (13:30)
[2020-03-08] MEDS ORDERED: Magnesium Sulfate 2 GM in Sodium Chloride 0.9% 100 ML IVPB SCH (13:30)
--- NOTE | 2020-03-08 18:32 | PRG ---
DATE OF SERVICE: 03/08/2020 SUBJECTIVE: I have been asked to re-evaluate Mr. De Leon. Dr. Ceballos had signed off yesterday after treating him for a large duodenal ulcer that was bleeding with last endoscopy on the and the first endoscopy on the . Apparently, he had one black stool early this morning or late last night. The patient states he has had no bowel movement since then. He feels well. MEDICATIONS: 1. Protonix 40 p.o. b.i.d. 2. Prednisone 5 mg daily. 3. Florastor. 4. Zofran p.r.n. OBJECTIVE: VITAL SIGNS: Temperature 98, pulse 82, blood pressure 145/73. ABDOMEN: Soft and nontender. LUNGS: Clear. LABORATORY DATA: White count is 12, down from 14 on the . Hemoglobin is 8.2, it was 7.8 yesterday yesterday, platelet count 326. Last transfusion was on the . ASSESSMENT: Gastrointestinal bleeding secondary to duodenal ulcer with control of hemorrhage on and second look on the . No active bleeding at this time. RECOMMENDATIONS: 1. Advance diet. Encourage physical therapy and the patient to get out of bed. 2. No signs of acute bleeding now. We would continue PPI therapy. We will sign off. If I can be of any further assistance, please do not hesitate to contact me. 3. With regard to his ulcer, it would be reasonable to check for H pylori and treat if positive, but in light of his advanced age, maybe it will be more reasonable to just treat him with a PPI indefinitely to prevent recurrent ulceration. The patient can follow up with Dr. Ceballos in 2 to 4 weeks in the outpatient setting if he transfers to the skilled tomorrow. Job ID: [id number]
--- NOTE | 2020-03-08 19:41 | PDOC.HOSPP ---
- Subjective Encounter Date: 03/08/20 Encounter Time: 14:00 Subjective: Patient seen and examined for GI bleeding with hypotension. No new bleeding today. Denies any chest pain or shortness of breath. Tolerating modified diet. - Objective Vital Signs & Weight: Vital Signs (12 hours) Temp Pulse Pulse Pulse Resp BP BP 03/08/20 15:18 98 F 82 20 03/08/20 11:19 97.8 F 85 20 03/08/20 08:42 89 81 143/78 H 120/73 BP Pulse Ox 03/08/20 15:18 145/73 H 93 L 03/08/20 11:19 147/82 H 94 L 03/08/20 08:42 Weight Admit Weight 218 lb 7.649 oz Weight 218 lb 7.649 oz Most Recent Monitor Data Heart Rate from ECG 91 NIBP 143/71 NIBP BP-Mean 96 Respiration from ECG 23 SpO2 100 I&O: 03/07/20 03/08/20 03/09/20 06:59 06:59 06:59 Intake Total 1600 1320 1730 Balance 1600 1320 1730 Result Diagrams: 03/08/20 11:43 03/08/20 11:43 Additional Labs: Abnormal Lab Results - Last 48 hrs 03/07/20 04:23: Potassium 3.3 L, Creatinine 0.57 L, Calcium 7.1 L, Phosphorus 1.6 L, Serum Total Protein 4.5 L, Albumin 2.3 L, Globulin 2.2 L, Albumin/Globulin Ratio 1.0 L 03/07/20 04:23: WBC 14.2 H, RBC 2.32 L, Hgb 7.8 L, Hct 22.5 L, MCH 33.8 H, RDW 15.0 H, Neutrophils % 79.3 H, Lymphocytes % 9.6 L, Monocytes % 10.4 H, Neutrophils # 11.3 H, Monocytes # 1.5 H 03/07/20 16:10: Hgb 8.0 L, Hct 23.2 L 03/08/20 11:43: WBC 12.0 H, RBC 2.47 L, Hgb 8.2 L, Hct 24.1 L, MCH 33.2 H, RDW 16.8 H, Neutrophils % 79.8 H, Lymphocytes % 7.9 L, Monocytes % 11.1 H, Neutrophils # 9.6 H, Lymphocytes # 0.9 L, Monocytes # 1.3 H 03/08/20 11:43: Creatinine 0.64 L, Calcium 7.7 L Microbiology - Entire Visit 03/02/20 07:53 Venous blood - Right Arm Blood Culture - Final NO GROWTH IN 5 DAYS 03/02/20 07:17 Venous blood - Right Arm Blood Culture - Final NO GROWTH IN 5 DAYS 03/02/20 07:08 Stool - Pending Stool Occult Blood ([facility]) - Final EKG Reviewed by me: Yes (Sinus rhythm on telemetry) Hospitalist ROS - Review of Systems Respiratory: denies: cough, dry, shortness of breath, hemoptysis, SOB with excertion, pleuritic pain, sputum, wheezing, other Cardiovascular: denies: chest pain, palpitations, orthopnea, paroxysmal noc. dyspnea, edema, light headedness, other - Medication Medications: Active Medications Generic Name Dose Route Start Last Admin Trade Name Freq PRN Reason Stop Dose Admin Bacitracin 1 pk 03/02/20 19:47 03/03/20 03:42 Bacitracin 1 Pk TOP 1 pk PRN PRN Administration TO SKIN OF UPPER LIP Calcium/Vitamin D 1 tab 03/06/20 17:00 03/08/20 17:15 Calcium Carbonate 600 Mg + Vit D Tab PO 1 tab BID-WM EDIS Administration Cefdinir 300 mg 03/06/20 21:00 03/08/20 08:31 Cefdinir 300 Mg Cap PO 300 mg BID EDIS Administration Chlorhexidine Gluconate 15 ml 03/02/20 21:00 03/08/20 08:34 Chlorhexidine Gluconate 15 Ml Udcup SSP 15 ml BID EDIS Administration Pantoprazole Sodium 40 mg 03/07/20 21:00 03/08/20 08:31 Pantoprazole 40 Mg Tab PO 40 mg BID EDIS Administration Prednisone 5 mg 03/07/20 17:00 03/08/20 17:15 Prednisone 5 Mg Tab PO 5 mg BID-WM EDIS Administration Saccharomyces Boulardii 250 mg 03/07/20 09:00 03/08/20 08:31 Saccharomyces Boulardii 250 Mg Cap PO 250 mg DAILY EDIS Administration - Exam General Appearance: NAD Neck: supple, no JVD Heart: no gallops, no rubs Respiratory: no wheezes, no rales Gastrointestinal: soft, non-distended, no guarding, no rigidity Extremities: no cyanosis, no clubbing Hosp A/P - Plan DVT proph w/SCDs Patient is a 84-year-old male with metastatic prostate cancer, aortic stenosis, hypertension with recent CVA on aspirin presented to the emergency room on 03/02 with lower GI bleeding and syncope/fall. He fell forward lacerating his upper lip on the shower. His blood pressure was 84 systolic by EMS. He also felt lightheaded and dizzy. His EKG showed sinus tachycardia with PVCs. CT scan of the head and neck was negative. He received 3 units of PRBC with 4 units of FFP in the emergency room. He was started on Levophed drip. Due to hemodynamic instability he was intubated and placed on mechanical ventilation. Please refer to the history and physical for further details. The patient was admitted to the intensive care unit with a diagnosis of hemorrhagic shock due to GI bleeding. He underwent EGD by Dr. Stoner on 03/02 that showed large amount of blood clots starting from the posterior pharynx running the entire length of the esophagus into the proximal stomach and fundus. He also had 2 ulcers in the duodenal bulb1 ulcer measured approximately 2 cm with erythematous base and under the ulcer measured approximately 1 cm. Descending duodenum had black clots with no active bleeding. Patient had a repeat EGD done on 03/03. He received total of 6 units of PRBC this hospital stay. He was extubated on 03/04. Pressors were discontinued on 03/04. He was transferred to telemetry unit on 03/05. Patient had another episode of GI bleeding on 03/07. Patient was also seen by oral maxillofacial surgeon for lip laceration which was repaired. CT of the facial bones was negative for evidence for facial fractures. Assessment: Acute hemorrhagic shock due to GI bleeding requiring pressors Acute blood loss anemia acute hypoxic respiratory failure requiring mechanical ventilation Syncope due to severe hypotension Hypokalemia/hypomagnesemia/hypophosphatemia Lactic acidosis due to hypotension Lip laceration due to mechanical fall from hypotension Leukocytosis with left shiftsuspected sepsis of unclear etiologyPOA History of hypertension History of metastatic prostate cancer Recent CVA in the left parietal/temporal regionpatient was discharged on 02/22 on aspirin History of severe aortic stenosis History of tachyarrhythmiapatient has a event monitor (follows Dr. Mclaughlin) Plan: Replace magnesium. Continue Omnicef for pneumonia. Continue oral PPI. Recheck hemoglobin in a.m. Will DC to [facility] once accepted. Hemoglobin is stabilized.
[2020-03-09 04:59] LABS: Hemoglobin 8.5 g/dL (14.0-18.0); Platelet Count 362 thou/uL (130-400)
[2020-03-09 05:21] LABS: Phosphorus 2.8 mg/dL (2.3-4.7)
[2020-03-09 05:23] LABS: Anion Gap 12 mmol/L (10-20); BUN (Urea Nitrogen) 12 mg/dL (8.4-25.7); Calc. Creatinine Clearance 124 mL/min (70-130); Calcium 7.8 mg/dL (7.8-10.44); Carbon Dioxide 28 mmol/L (23-31); Chloride 102 mmol/L (98-107); Glucose 105 mg/dL (83-110); Magnesium 2.1 mg/dL (1.6-2.6); Potassium 3.5 mmol/L (3.5-5.1); Sodium 138 mmol/L (136-145)
[2020-03-09] MEDS ORDERED: Potassium Chloride 20 MEQ TAB PO SCH ×2 (06:45→09:45)
[2020-03-09 07:21] VITALS: BP 143/80; TEMP 98.1
[2020-03-09] MEDS: Calcium Carbonate 600 MG + Vit D TAB PO SCH (08:52)
[2020-03-09] MEDS: Saccharomyces boulardii 250 MG CAP PO SCH (08:52)
[2020-03-09] MEDS: Chlorhexidine Gluconate 15 ML UDCUP SSP SCH (08:52)
[2020-03-09] MEDS: Cefdinir 300 MG CAP PO SCH (08:52)
[2020-03-09] MEDS: predniSONE 5 MG TAB PO SCH (08:52)
--- NOTE | 2020-03-09 12:27 | PDOC.DS.DS ---
Provider - Provider Date of Admission: 03/02/20 09:06 Date of Discharge: 03/09/20 Admitting Provider: Nash Kim DO Consultations: Gastroentrology Primary Care Physician: Dwain Swartz Course - Hospital Course Hospital Course: Patient is a 84-year-old male with metastatic prostate cancer, aortic stenosis, hypertension with recent CVA on aspirin presented to the emergency room on 03/02 with lower GI bleeding and syncope/fall. He fell forward lacerating his upper lip on the shower. His blood pressure was 84 systolic by EMS. He also felt lightheaded and dizzy. His EKG showed sinus tachycardia with PVCs. CT scan of the head and neck was negative. He received 3 units of PRBC with 4 units of FFP in the emergency room. He was started on Levophed drip. Due to hemodynamic instability he was intubated and placed on mechanical ventilation. Please refer to the history and physical for further details. The patient was admitted to the intensive care unit with a diagnosis of hemorrhagic shock due to GI bleeding. He underwent EGD by Dr. Stoner on 03/02 that showed large amount of blood clots starting from the posterior pharynx running the entire length of the esophagus into the proximal stomach and fundus. He also had 2 ulcers in the duodenal bulb1 ulcer measured approximately 2 cm with erythematous base and under the ulcer measured approximately 1 cm. Descending duodenum had black clots with no active bleeding. Patient had a repeat EGD done on 03/03. He received total of 6 units of PRBC this hospital stay. He was extubated on 03/04. Pressors were discontinued on 03/04. He was transferred to telemetry unit on 03/05. Patient had another episode of GI bleeding on 03/07. Patient's hemoglobin has been stable over the past 48 hours. He has been cleared by gastroenterology for discharge. Central line has been discontinued on the day of discharge. Repeat hemoglobin check in 1 week is recommended. Patient was also seen by oral maxillofacial surgeon for lip laceration which was repaired. CT of the facial bones was negative for evidence for facial fractures. He was advised to follow-up with oral surgeon as outpatient Assessment: Acute hemorrhagic shock due to GI bleeding requiring pressors Acute blood loss anemia acute hypoxic respiratory failure requiring mechanical ventilation Syncope due to severe hypotension Hypokalemia/hypomagnesemia/hypophosphatemia Lactic acidosis due to hypotension Lip laceration due to mechanical fall from hypotension S/p repair by Dr. Orona Leukocytosis with left shiftsuspected sepsis of unclear etiologyPOA History of hypertension History of metastatic prostate cancer Recent CVA in the left parietal/temporal regionpatient was discharged on 02/22 on aspirin History of severe aortic stenosis History of tachyarrhythmiapatient has a event monitor (follows Dr. Mclaughlin) Swallow dysfunction Time coordinating the discharge of this patient was 37 minutes. Patient understands above plan of care. Resuscitation Status: 03/02/20 09:58 Resuscitation Status Routine Resuscitation Status: FULL: Full Resuscitation - Labs Lab Results: 03/09/20 04:40 03/09/20 04:40 Abnormal Lab Results - Last 48 hrs 03/07/20 16:10: Hgb 8.0 L, Hct 23.2 L 03/08/20 11:43: WBC 12.0 H, RBC 2.47 L, Hgb 8.2 L, Hct 24.1 L, MCH 33.2 H, RDW 16.8 H, Neutrophils % 79.8 H, Lymphocytes % 7.9 L, Monocytes % 11.1 H, Neutrophils # 9.6 H, Lymphocytes # 0.9 L, Monocytes # 1.3 H 03/08/20 11:43: Creatinine 0.64 L, Calcium 7.7 L 03/09/20 04:40: Creatinine 0.61 L 03/09/20 04:40: Hgb 8.5 L, Hct 25.6 L Microbiology - Entire Visit 03/02/20 07:53 Venous blood - Right Arm Blood Culture - Final NO GROWTH IN 5 DAYS 03/02/20 07:17 Venous blood - Right Arm Blood Culture - Final NO GROWTH IN 5 DAYS 03/02/20 07:08 Stool - Pending Stool Occult Blood ([facility]) - Final - Physical Exam Vitals: Vital Signs (12 hours) Temp Pulse Resp BP Pulse Ox 03/09/20 08:00 98 03/09/20 07:19 98.1 F 86 20 143/80 H 98 03/09/20 03:48 98.9 F 80 20 161/88 H 94 L Weight Admit Weight 218 lb 7.649 oz Weight 218 lb 7.649 oz Most Recent Monitor Data Heart Rate from ECG 91 NIBP 143/71 NIBP BP-Mean 96 Respiration from ECG 23 SpO2 100 Physical Exam: The patient was seen and examined on the day of discharge. Plan - Discharge Medications Home Medications: Medication Instructions Recorded Confirmed Type Cholecalciferol (Vitamin D3) [D3 5,000 unit PO DAILY 03/02/20 03/02/20 History Dots] Vit C/Ascorb Sod/Multivit-Min 500 mg PO DAILY 03/02/20 03/02/20 History [Emergen-C 500 mg Chewable Tab] Zinc 50 mg PO DAILY 03/02/20 03/02/20 History predniSONE 5 mg PO BID-WM 03/02/20 03/02/20 History Aspirin 81 mg PO DAILY #0 03/09/20 03/02/20 Rx Calcium Carbonate + Vit D 1 tab PO BID-WM tab 03/09/20 Rx [Caltrate 600 + Vit D] Cefdinir [Omnicef] 300 mg PO BID cap 03/09/20 Rx Chlorhexidine Gluconate 15 ml SSP BID udcup 03/09/20 Rx Lisinopril [Zestril] 10 mg PO DAILY #0 03/09/20 03/02/20 Rx Pantoprazole [Protonix] 40 mg PO BID #0 tab 03/09/20 Rx Saccharomyces boulardii [Florastor] 250 mg PO DAILY cap 03/09/20 Rx Allergies: No Known Drug Allergies Allergy (Verified 02/22/20 03:50) pt denies allergies - Discharge Instructions Discharge Instructions:: HH and BMP after 1 week Follow up with Oral surgeon x 1 week - Follow up Plan Referrals: a[facility]ri [facility] DDS [Active] - Dwain Swartz MD [Primary Care Provider] - 7 Days Jim Ceballos MD [Active] - 14 Days Disposition: LONGTERM FACILITY Quality - Care Measures CORE MEASURES:: N/A
== END 2020-03-09 11:41 | DRG 871 ==
LOC: ERS 06:46 → CCU 09:06 → 2NO 03-05 11:07 → 2SE 03-05 11:08
PROVIDERS: ADMIT Family Medicine; ATTEND Internal Medicine
PROC: 30233K1 Transfusion of Nonautologous Frozen Plasma into Peripheral Vein, Percutaneous Approach (ICD-10-PCS; principal; 2020-03-02)
PROC: 30233N1 Transfusion of Nonautologous Red Blood Cells into Peripheral Vein, Percutaneous Approach (ICD-10-PCS; 2020-03-02)
PROC: 0BH17EZ Insertion of Endotracheal Airway into Trachea, Via Natural or Artificial Opening (ICD-10-PCS; 2020-03-02)
PROC: 5A1945Z Respiratory Ventilation, 24-96 Consecutive Hours (ICD-10-PCS; 2020-03-02)
PROC: 02HV33Z Insertion of Infusion Device into Superior Vena Cava, Percutaneous Approach (ICD-10-PCS; 2020-03-02)
PROC: 3E033XZ Introduction of Vasopressor into Peripheral Vein, Percutaneous Approach (ICD-10-PCS; 2020-03-02)
PROC: 0DJ08ZZ Inspection of Upper Intestinal Tract, Via Natural or Artificial Opening Endoscopic (ICD-10-PCS; 2020-03-02)
PROC: 0DJ08ZZ Inspection of Upper Intestinal Tract, Via Natural or Artificial Opening Endoscopic (ICD-10-PCS; 2020-03-03)
DX: A41.9 Sepsis, unspecified organism (principal); R57.8 Other shock; J96.01 Acute respiratory failure with hypoxia; K26.4 Chronic or unspecified duodenal ulcer with hemorrhage; D62 Acute posthemorrhagic anemia; E87.2 Acidosis; I48.91 Unspecified atrial fibrillation; I10 Essential (primary) hypertension; D64.9 Anemia, unspecified; R55 Syncope and collapse; C61 Malignant neoplasm of prostate; S01.511A Laceration without foreign body of lip, initial encounter; Z86.73 Personal history of transient ischemic attack (TIA), and cerebral infarction without residual deficits; Z79.899 Other long term (current) drug therapy; I35.0 Nonrheumatic aortic (valve) stenosis; Z92.21 Personal history of antineoplastic chemotherapy; E87.6 Hypokalemia; E83.42 Hypomagnesemia; E83.39 Other disorders of phosphorus metabolism; Z20.828 Contact with and (suspected) exposure to other viral communicable diseases
CPT/HCPCS: 0240U; 31500; 36415; 36416; 36430; 36556; 36600; 51702; 70450; 70486; 71045; 72125; 80048; 80053; 81003; 81015; 82248; 82274; 82550; 82805; 83605; 83615; 83690; 83735; 83880; 84100; 84484; 84550; 85014; 85018; 85025; 85049; 85060; 85379; 85610; 85730; 86850; 86900; 86901; 87040; 93005; 94002; 94003; 96361; 96365; 96366; 96368; 96375; 99292; C9113; J0692; J1956; J2250; J2704; J3010; J3370; J3475; J3480; J3490; J7030; J7050; J7070; J7512; P9016; P9059

== ENCOUNTER 2020-08-29 16:37 | Emergency (ER) | payer MEDICARE ==
[2020-08-29] MEDS ORDERED: Rivaroxaban 10 MG TAB PO SCH (21:00)
== END 2020-08-29 21:12 | disposition home or self-care (01) ==
LOC: ERS 16:37
DX: I82.4Z3 Acute embolism and thrombosis of unspecified deep veins of distal lower extremity, bilateral (principal); I10 Essential (primary) hypertension
CPT/HCPCS: 99283

== ENCOUNTER 2020-12-19 11:24 | Outpatient (CLI) | payer MEDICARE | END 2020-12-19 11:25 | disposition home or self-care (01) | LOC: NM 11:24 | PROVIDERS: ATTEND Radiology Radiation Oncology | DX: C61 Malignant neoplasm of prostate (principal); C79.51 Secondary malignant neoplasm of bone | CPT/HCPCS: 79101; A9606 ==

== ENCOUNTER 2021-01-25 10:55 | Outpatient (CLI) | payer MEDICARE | END 2021-01-25 10:56 | disposition home or self-care (01) | LOC: NM 10:55 | PROVIDERS: ATTEND Radiology Radiation Oncology | DX: C79.51 Secondary malignant neoplasm of bone (principal); C61 Malignant neoplasm of prostate | CPT/HCPCS: 79101; A9606 ==

== ENCOUNTER 2021-02-22 11:30 | Outpatient (CLI) | payer MEDICARE | END 2021-02-22 11:31 | disposition home or self-care (01) | LOC: NM 11:30 | PROVIDERS: ATTEND Radiology Radiation Oncology | DX: C79.51 Secondary malignant neoplasm of bone (principal); C61 Malignant neoplasm of prostate | CPT/HCPCS: 79101; A9606 ==

== ENCOUNTER 2021-03-28 11:00 | Outpatient (CLI) | payer MEDICARE | END 2021-03-28 11:01 | disposition home or self-care (01) | LOC: NM 11:00 | PROVIDERS: ATTEND Radiology Radiation Oncology | DX: C61 Malignant neoplasm of prostate (principal); C79.51 Secondary malignant neoplasm of bone | CPT/HCPCS: 79101; A9606 ==

== ENCOUNTER 2021-04-30 10:37 | Outpatient (CLI) | payer MEDICARE | END 2021-04-30 10:38 | disposition home or self-care (01) | LOC: NM 10:37 | PROVIDERS: ATTEND Radiology Radiation Oncology | DX: C61 Malignant neoplasm of prostate (principal); C79.51 Secondary malignant neoplasm of bone | CPT/HCPCS: 79101; A9606; 36415; 84153 ==

== ENCOUNTER 2021-08-23 15:14 | Outpatient (CLI) | payer MEDICARE | END 2021-08-23 15:15 | disposition home or self-care (01) | LOC: BICRAD 15:14 | PROVIDERS: ATTEND Nurse Practitioner Family | DX: J06.9 Acute upper respiratory infection, unspecified (principal) | CPT/HCPCS: 71046 ==

== ENCOUNTER 2021-11-05 08:08 | Outpatient (CLI) | payer MEDICARE ==
[2021-11-05] MEDS ORDERED: Iopamidol 370 76% 100 ML VIAL ONE (08:55)
== END 2021-11-05 08:09 | disposition home or self-care (01) ==
LOC: CT 08:08
PROVIDERS: ATTEND Internal Medicine Hematology & Oncology
DX: C61 Malignant neoplasm of prostate (principal); C79.51 Secondary malignant neoplasm of bone; J90 Pleural effusion, not elsewhere classified; J98.11 Atelectasis; S22.081A Stable burst fracture of T11-T12 vertebra, initial encounter for closed fracture; K57.30 Diverticulosis of large intestine without perforation or abscess without bleeding; K31.89 Other diseases of stomach and duodenum; S32.019A Unspecified fracture of first lumbar vertebra, initial encounter for closed fracture
CPT/HCPCS: 74177; 78306; A9503; Q9967

== ENCOUNTER 2021-11-29 12:25 | Inpatient (IN) | payer MEDICARE ==
[~2021-11-29 12:25] MED LIST: Iopamidol-370 76% 500 ML 1 ML ONE
[2021-11-29 13:09] LABS: #Lymphocytes 0.5 thou/uL (1.20-3.40); #Monocytes 0.7 thou/uL (0.11-0.59); #Neutrophils 4.7 thou/uL (1.40-6.50); %Basophils 0.1 % (0.0-1.0); %Eosinophils 0.3 % (0.0-10.0); %Lymphocytes 8.7 % (21.0-51.0); %Monocytes 12.4 % (0.0-10.0); %Neutrophils 78.5 % (42.0-75.0); Hemoglobin 10.8 g/dL (14.0-18.0); Mean Corpuscular HGB CONC 32.5 g/dL (32.0-36.0); Mean Corpuscular Hemoglobin 35.4 pg (27.0-31.0); Mean Platelet Volume 8.2 fL (7.4-10.4); Platelet Count 137 thou/uL (130-400); RBC Distribution Width 17.5 % (11.5-14.5); Red Blood Cell (RBC) Count 3.04 mill/uL (4.70-6.10)
[2021-11-29 13:28] LABS: Anisocytosis SLIGHT = 6-15 cells (100X) (0-5/hpf); MDiff Complete? YES; Macrocytosis SLIGHT = 6-15 cells (100X) (0-5/hpf); Platelet Morphology Comment Appears Adequate; Polychromasia SLIGHT = 2-3 cells (100X) (0-2/hpf)
[2021-11-29 13:37] LABS: ALT (SGPT) 16 U/L (8-55); AST (SGOT) 22 U/L (5-34); Albumin 2.5 g/dL (3.4-4.8); Alkaline Phosphatase 52 U/L (40-110); Anion Gap 11 mmol/L (10-20); BUN (Urea Nitrogen) 18 mg/dL (8.4-25.7); Bilirubin, Total 0.8 mg/dL (0.2-1.2); Calc. Creatinine Clearance 0 mL/min (70-130); Calcium 8.1 mg/dL (7.8-10.44); Carbon Dioxide 29 mmol/L (23-31); Chloride 97 mmol/L (98-107); Estimated GFR 90; Globulin 2.1 g/dL (2.4-3.5); Glucose 103 mg/dL (83-110); Potassium 3.9 mmol/L (3.5-5.1); Protein, Total 4.6 g/dL (5.8-8.1); Sodium 133 mmol/L (136-145)
[2021-11-29 14:21] LABS: Bilirubin Negative (Negative); Blood, Urine Negative (Negative); Clarity Clear (Clear); Glucose, Urine (Dipstick) Normal (Negative); Ketone, Urine Negative (Negative); Leukocyte Negative Leu/uL (Negative); Nitrite Negative (Negative); Protein, Urine (Dipstick) Negative (Neg-Trace); Specific Gravity, Urine 1.011 (1.002-1.036); Urobilinogen Normal mg/dL (Less than 2); pH, Urine 7.5 (5.0-9.0)
[2021-11-29 14:56] LABS: SARS-CoV-2 NAA Rapid Test Not Detected (NotDetected)
[2021-11-29] MEDS ORDERED: Aspirin Chewable 81 MG TAB ONE (15:03)
[2021-11-29 19:17] LABS: Troponin I 0.033 ng/mL (< 0.028)
[2021-11-29 20:02] VITALS: BMI 24.0
[2021-11-29] MEDS: Acetaminophen 325 MG TAB PO PRN (22:03)
[2021-11-30 05:12] LABS: #Lymphocytes 0.6 thou/uL (1.20-3.40); #Monocytes 0.7 thou/uL (0.11-0.59); #Neutrophils 3.2 thou/uL (1.40-6.50); %Basophils 0.3 % (0.0-1.0); %Eosinophils 0.7 % (0.0-10.0); %Monocytes 14.8 % (0.0-10.0); %Neutrophils 71.2 % (42.0-75.0); Hemoglobin 10.2 g/dL (14.0-18.0); Mean Corpuscular HGB CONC 31.9 g/dL (32.0-36.0); Platelet Count 134 thou/uL (130-400); RBC Distribution Width 17.4 % (11.5-14.5); Red Blood Cell (RBC) Count 2.93 mill/uL (4.70-6.10); White Blood Cell (WBC) Count 4.5 thou/uL (4.8-10.8)
[2021-11-30 05:35] LABS: Anion Gap 9 mmol/L (10-20); BUN (Urea Nitrogen) 18 mg/dL (8.4-25.7); Calc. Creatinine Clearance 104 mL/min (70-130); Calcium 7.9 mg/dL (7.8-10.44); Carbon Dioxide 34 mmol/L (23-31); Chloride 96 mmol/L (98-107); Estimated GFR 93; Glucose 86 mg/dL (83-110); Potassium 3.9 mmol/L (3.5-5.1); Sodium 135 mmol/L (136-145)
[2021-11-30] MEDS ORDERED: Non-Formulary Item 1 EACH (Polyethylene Glycol 3350 [Miralax] 17 GM Powd.Pack) PO PRN (07:32)
[2021-11-30] MEDS ORDERED: Sodium Chloride 0.9% 500 ML IV SCH (07:45)
[2021-11-30] MEDS: Potassium Chloride 20 MEQ TAB PO SCH (08:35)
[2021-11-30] MEDS: Loratadine 10 MG TAB PO SCH (08:35)
[2021-11-30] MEDS: Tamsulosin HCl 0.4 MG CAP PO SCH (08:35)
[2021-11-30] MEDS: Rivaroxaban 10 MG TAB PO SCH (08:35)
[2021-11-30] MEDS ORDERED: Neosporin Ophth Soln 10 ml Bottle R EYE SCH (10:15)
[2021-11-30] MEDS ORDERED: Neosporin Ophth Soln 10 ml Bottle EA EYE SCH ×2 (12:30→21:00)
[2021-11-30] MEDS ORDERED: Neomycin-Polymyxin-Hc 7.5 ML BOT EA EYE SCH (13:15)
[2021-11-30] MEDS: Acetaminophen 325 MG TAB PO PRN (20:37)
[2021-11-30] MEDS: Neomycin-Polymyxin-Hc 7.5 ML BOT EA EYE SCH (20:38)
[2021-12-01] MEDS: Ibuprofen 200 MG TAB PO PRN ×2 (02:59→20:32)
[2021-12-01] MEDS: Loratadine 10 MG TAB PO SCH (08:43)
[2021-12-01] MEDS: Rivaroxaban 10 MG TAB PO SCH (08:43)
[2021-12-01] MEDS: Tamsulosin HCl 0.4 MG CAP PO SCH (08:43)
[2021-12-01] MEDS: Potassium Chloride 20 MEQ TAB PO SCH (08:44)
[2021-12-01] MEDS ORDERED: Polyethylene Glycol 3350 17 GM Packet PO PRN (20:37)
[2021-12-01] MEDS: Neomycin-Polymyxin-Hc 7.5 ML BOT EA EYE SCH (20:49)
[2021-12-02 05:57] LABS: #Lymphocytes 0.6 thou/uL (1.20-3.40); #Monocytes 0.5 thou/uL (0.11-0.59); %Basophils 0.4 % (0.0-1.0); %Eosinophils 0.9 % (0.0-10.0); %Lymphocytes 15.2 % (21.0-51.0); %Monocytes 12.5 % (0.0-10.0); Hemoglobin 11.3 g/dL (14.0-18.0); Mean Corpuscular Hemoglobin 34.9 pg (27.0-31.0); Mean Platelet Volume 7.8 fL (7.4-10.4); Platelet Count 161 thou/uL (130-400); RBC Distribution Width 17.3 % (11.5-14.5); Red Blood Cell (RBC) Count 3.24 mill/uL (4.70-6.10); White Blood Cell (WBC) Count 4.2 thou/uL (4.8-10.8)
[2021-12-02 06:15] LABS: Anion Gap 9 mmol/L (10-20); BUN (Urea Nitrogen) 19 mg/dL (8.4-25.7); Calc. Creatinine Clearance 104 mL/min (70-130); Calcium 8.3 mg/dL (7.8-10.44); Carbon Dioxide 34 mmol/L (23-31); Chloride 97 mmol/L (98-107); Estimated GFR 93; Glucose 91 mg/dL (83-110); Potassium 4.4 mmol/L (3.5-5.1); Sodium 136 mmol/L (136-145)
[2021-12-02] MEDS: Tamsulosin HCl 0.4 MG CAP PO SCH (08:40)
[2021-12-02] MEDS: Potassium Chloride 20 MEQ TAB PO SCH (08:40)
[2021-12-02] MEDS: Rivaroxaban 10 MG TAB PO SCH (08:40)
[2021-12-02] MEDS: Loratadine 10 MG TAB PO SCH (08:40)
[2021-12-02] MEDS: Ibuprofen 200 MG TAB PO PRN (08:52)
[2021-12-02] MEDS: Neomycin-Polymyxin-Hc 7.5 ML BOT EA EYE SCH (22:13)
[2021-12-02] MEDS: Acetaminophen 325 MG TAB PO PRN (22:14)
[2021-12-03] MEDS: Ibuprofen 200 MG TAB PO PRN (03:26)
[2021-12-03] MEDS ORDERED: Non-Formulary Item 1 EACH (L.Acidoph,Paracasei, B.Lactis [Probiotic] 1 EACH Capsule) PO SCH (09:00)
[2021-12-03] MEDS ORDERED: Potassium Chloride 20 MEQ TAB PO SCH (09:00)
[2021-12-03] MEDS ORDERED: Non-Formulary Item 1 EACH (Omeprazole [Omeprazole] 20 MG Tablet.Dr) PO SCH (09:00)
[2021-12-03] MEDS ORDERED: Non-Formulary Item 1 EACH (Potassium Chloride [Potassium Chloride] 20 MEQ Tablet.Er) PO SCH (09:00)
[2021-12-03] MEDS ORDERED: Furosemide 40 MG TAB PO SCH (09:00)
[2021-12-03] MEDS ORDERED: Floranex 1 GM Packet PO SCH (09:00)
[2021-12-03] MEDS: Rivaroxaban 10 MG TAB PO SCH (09:14)
[2021-12-03] MEDS: Tamsulosin HCl 0.4 MG CAP PO SCH (09:16)
[2021-12-03] MEDS: Loratadine 10 MG TAB PO SCH (09:16)
[2021-12-03 12:03] VITALS: BP 108/69; TEMP 97.3
== END 2021-12-03 13:30 | DRG 312 ==
LOC: ERS 12:25 → 2NO 17:20 → OBSVTOIN 11-30 18:34 → SJJU 12-01 14:46
PROVIDERS: ADMIT Internal Medicine; ATTEND Internal Medicine
DX: I95.2 Hypotension due to drugs (principal); C79.51 Secondary malignant neoplasm of bone; M84.58XA Pathological fracture in neoplastic disease, other specified site, initial encounter for fracture; E87.1 Hypo-osmolality and hyponatremia; J90 Pleural effusion, not elsewhere classified; I69.351 Hemiplegia and hemiparesis following cerebral infarction affecting right dominant side; T46.4X5A Adverse effect of angiotensin-converting-enzyme inhibitors, initial encounter; Z66 Do not resuscitate; Z20.822 Contact with and (suspected) exposure to COVID-19; C61 Malignant neoplasm of prostate; G89.29 Other chronic pain; N40.0 Benign prostatic hyperplasia without lower urinary tract symptoms; E86.0 Dehydration; Z79.899 Other long term (current) drug therapy; Z79.01 Long term (current) use of anticoagulants; Z80.9 Family history of malignant neoplasm, unspecified
CPT/HCPCS: 36415; 71045; 71275; 80048; 80053; 81003; 82550; 83605; 84484; 85025; 93005; 96360; G0378; J7030; Q9967; U0002

== ENCOUNTER 2021-12-27 16:25 | Emergency (ER) | payer MEDICARE ==
[2021-12-27 19:56] LABS: #Lymphocytes 0.8 thou/uL (1.20-3.40); #Monocytes 0.6 thou/uL (0.11-0.59); #Neutrophils 2.7 thou/uL (1.40-6.50); %Eosinophils 0.8 % (0.0-10.0); %Lymphocytes 18.8 % (21.0-51.0); %Monocytes 14.3 % (0.0-10.0); %Neutrophils 66.1 % (42.0-75.0); Hemoglobin 12.2 g/dL (14.0-18.0); Mean Corpuscular HGB CONC 30.8 g/dL (32.0-36.0); Mean Corpuscular Hemoglobin 34.8 pg (27.0-31.0); Mean Platelet Volume 7.2 fL (7.4-10.4); Platelet Count 192 thou/uL (130-400); RBC Distribution Width 16.3 % (11.5-14.5); Red Blood Cell (RBC) Count 3.49 mill/uL (4.70-6.10); White Blood Cell (WBC) Count 4.1 thou/uL (4.8-10.8)
[2021-12-27 19:59] LABS: Bilirubin Negative (Negative); Blood, Urine 2+ (Negative); Calcium Oxalate Crystals Rare HPF (None Seen); Clarity Clear (Clear); Glucose, Urine (Dipstick) Normal (Negative); Ketone, Urine Negative (Negative); Leukocyte 25 Leu/uL (Negative); Mucous/LPF 2+ LPF (<2+); Nitrite 1+ (Negative); Protein, Urine (Dipstick) 10 mg/dL (Neg-Trace); RBC/HPF Greater than 50 HPF (0-3); Renal Epithelial 0-3 HPF (None Seen); Specific Gravity, Urine 1.018 (1.002-1.036); Squamous Epithelial None Seen HPF (0-3); Urobilinogen 3 mg/dL (Less than 2)
[2021-12-27 20:09] LABS: Bacteria/HPF Rare-Few HPF (None Seen)
[2021-12-27 20:19] LABS: ALT (SGPT) 16 U/L (8-55); AST (SGOT) 21 U/L (5-34); Albumin 3.2 g/dL (3.4-4.8); Alkaline Phosphatase 55 U/L (40-110); BUN (Urea Nitrogen) 18 mg/dL (8.4-25.7); Bilirubin, Total 0.9 mg/dL (0.2-1.2); Calc. Creatinine Clearance 0 mL/min (70-130); Calcium 8.8 mg/dL (7.8-10.44); Estimated GFR 91; Globulin 2.6 g/dL (2.4-3.5); Glucose 108 mg/dL (83-110); Protein, Total 5.8 g/dL (5.8-8.1)
[2021-12-27 20:39] LABS: Chloride 90 mmol/L (98-107); Potassium 3.5 mmol/L (3.5-5.1); Sodium 136 mmol/L (136-145)
[2021-12-27 20:42] LABS: Anion Gap 16 mmol/L (10-20); Carbon Dioxide 34 mmol/L (23-31)
== END 2021-12-27 21:02 | disposition home or self-care (01) ==
LOC: ERS 16:25
DX: N39.0 Urinary tract infection, site not specified (principal); Z85.46 Personal history of malignant neoplasm of prostate; I10 Essential (primary) hypertension
CPT/HCPCS: 36415; 80053; 81003; 81015; 85025; 87077; 87086; 87186; 99283

== ENCOUNTER 2022-01-09 12:42 | Outpatient (CLI) | payer MEDICARE | END 2022-01-09 12:43 | disposition home or self-care (01) | LOC: TBSIIMAG 12:42 | PROVIDERS: ATTEND Neurological Surgery | DX: S22.081A Stable burst fracture of T11-T12 vertebra, initial encounter for closed fracture (principal); M84.58XA Pathological fracture in neoplastic disease, other specified site, initial encounter for fracture; C79.51 Secondary malignant neoplasm of bone; C80.1 Malignant (primary) neoplasm, unspecified; M47.814 Spondylosis without myelopathy or radiculopathy, thoracic region | CPT/HCPCS: 72072; 72100 ==